=== PATIENT | male | born 1980 | race Caucasian/White ===

== ENCOUNTER 2020-02-27 19:47 | Inpatient (IN) | payer SELFPAY ==
[2020-02-27] MEDS ORDERED: PIPERACILLIN/TAZOBACTAM 3.375 GM VIAL IV ONE (20:04)
[2020-02-27] MEDS ORDERED: VANCOMYCIN HCL INJ 1000 MG VIAL IV ONE (20:04)
[2020-02-27] MEDS ORDERED: HYDROMORPHONE HCL INJ/PF 2 MG/ML AMPULE IV ONE (20:15)
[2020-02-27] MEDS ORDERED: LORAZEPAM INJ 2 MG/1 ML VIAL IV ONE (20:15)
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
[2020-02-27] MEDS: NORMAL SALINE 1000 ML 1,000 ML IV PRN ×2 (20:33→21:34)
[2020-02-27 20:52] LABS: HEMATOCRIT 35.9 % (37.9-51.0); HEMOGLOBIN 11.9 g/dL (13.5-17.0); MEAN CORPUSCULAR HEMOGLOBIN 26.3 pg (27.0-33.4); MEAN CORPUSCULAR HGB CONC 33.2 g/dL (32.0-36.0); MEAN CORPUSCULAR VOLUME 79 fl (80-97); PLATELET COUNT 208 10^3/uL (150-450); RED BLOOD COUNT 4.55 10^6/uL (4.35-5.55); RED CELL DISTRIBUTION WIDTH 15.3 % (11.5-14.0); WHITE BLOOD COUNT 25.1 10^3/uL (4.0-10.5)
--- NOTE | 2020-02-27 21:00 | RADIOLOGY REPORT (SQ) ---
AP Portable chest: 02/27/2020 7:57 PM CAMPAIGN ADVISOR History: 39-year old patient with sepsis. Comparison: None available Findings: The cardiomediastinal silhouette is normal in size. No pneumothorax is seen. There are airspace opacities seen at the left lung base. There is blunting of the left costophrenic angle, suggestive of a trace left effusion. Impression: There is an airspace opacity seen at the left lung base associated with trace left effusion. These may reflect developing infection or atelectasis.
[2020-02-27 21:07] LABS: ALBUMIN 3.5 g/dL (3.5-5.0); ALKALINE PHOSPHATASE 101 U/L (38-126); ANION GAP 10 (5-19); ASPARTATE AMINO TRANSFERASE 35 U/L (17-59); BILIRUBIN,TOTAL 1.3 mg/dL (0.2-1.3); BLOOD UREA NITROGEN 12 mg/dL (7-20); CALCIUM 9.5 mg/dL (8.4-10.2); CARBON DIOXIDE 23 mmol/L (22-30); CHLORIDE 96 mmol/L (98-107); GLUCOSE 158 mg/dL (75-110); POTASSIUM 3.7 mmol/L (3.6-5.0); TOTAL PROTEIN 6.7 g/dL (6.3-8.2)
[2020-02-27 21:24] LABS: ABSOLUTE LYMPHOCYTES# (MANUAL) 1.3 10^3/uL (0.5-4.7); ABSOLUTE MONOCYTES # (MANUAL) 1.3 10^3/uL (0.1-1.4); ANISOCYTOSIS SLIGHT; BAND NEUTROPHILS % (MANUAL) 3 % (3-5); BASOPHILS % (MANUAL) 0 % (0-2); EOSINOPHILS % (MANUAL) 0 % (0-6); LYMPHOCYTES % (MANUAL) 5 % (13-45); MONOCYTES % (MANUAL) 5 % (3-13); PLATELET COMMENT ADEQUATE; SEGMENTED NEUTROPHILS % (MAN) 87 % (42-78); TOTAL CELLS COUNTED 100; TOXIC VACUOLATION PRESENT
[2020-02-27] MEDS ORDERED: FENTANYL CITRATE INJ/PF 100 MCG/2 ML AMPUL IV ONE (22:06)
--- NOTE | 2020-02-27 22:29 | EKG REPORT ---
SEVERITY:- OTHERWISE NORMAL ECG - SINUS TACHYCARDIA : Confirmed by: Stella Raza MD 27-Feb-2020 22:28:39
[2020-02-27 22:47] LABS: APPEARANCE,URINE CLEAR; BILIRUBIN,URINE NEGATIVE (NEGATIVE); COLOR,URINE YELLOW; GLUCOSE, URINE 50 mg/dL (NEGATIVE); KETONES,URINE NEGATIVE (NEGATIVE); LEUKOCYTE ESTERASE,URINE NEGATIVE (NEGATIVE); NITRITE,URINE NEGATIVE (NEGATIVE); PROTEIN,URINE 100 mg/dL (NEGATIVE); URINE SPECIFIC GRAVITY 1.025; UROBILINOGEN,URINE NEGATIVE mg/dL (<2.0)
[2020-02-27 23:02] LABS: URINE AMPHETAMINES SCREEN NEGATIVE; URINE BARBITURATES SCREEN NEGATIVE; URINE BENZODIAZEPINES SCREEN NEGATIVE; URINE COCAINE SCREEN NEGATIVE; URINE MARIJUANA (THC) SCREEN NEGATIVE; URINE METHADONE SCREEN NEGATIVE; URINE PHENCYCLIDINE SCREEN NEGATIVE
[2020-02-27] MEDS ORDERED: ACETAMINOPHEN 325 MG TABLET PO PRN (23:09)
[2020-02-27] MEDS ORDERED: ONDANSETRON HCL INJ/PF 4 MG/2 ML SDV IV PRN (23:09)
--- NOTE | 2020-02-27 23:26 | RADIOLOGY REPORT (SQ) ---
EXAM DESCRIPTION: HUMERUS LEFT RadLex: XR HUMERUS Views: 2 CLINICAL HISTORY: 39 years Male; cellulitis; COMPARISON: None. FINDINGS: Negative for acute fracture, dislocation, or radiopaque foreign body. No lytic bone changes or periosteal reaction. No soft tissue air. IMPRESSION: 1. No acute bone findings
[2020-02-27] MEDS ORDERED: PIPERACILLIN/TAZOBACTAM 3.375 GM VIAL IV PRN (23:27)
--- NOTE | 2020-02-27 23:27 | RADIOLOGY REPORT (SQ) ---
Left forearm x-ray two views on 02/27/2020 at 10:47 PM CLINICAL INDICATION: Cellulitis COMPARISON: None FINDINGS: Soft tissue swelling is noted in the proximal forearm and around the elbow. There is no radiopaque foreign body. There are no fractures. No joint effusion is noted in the elbow. Visualized joints are well aligned. No definite plain radiographic evidence of osteomyelitis is noted. No bony abnormality is noted. IMPRESSION: No acute abnormality.
[2020-02-27] MEDS ORDERED: VANCOMYCIN HCL 0 MG in DEXTROSE 5%-WATER 250 ML IV NR (23:30)
[2020-02-27] MEDS ORDERED: VANCOMYCIN HCL INJ 500 MG VIAL IV PRN (23:32)
--- NOTE | 2020-02-27 23:32 | PDOC H&P ---
History of Present Illness Admission Date/PCP: 02/27/20 22:39 Patient complains of: Left upper extremity swelling and pain History of Present Illness: MARTINEZ YOUNGER is a 39 year old male with a history of IV drug use now presents to the ER with 3 days duration of left arm swelling with associated severe excruciating 10/10 intensity, constant dull aching pain. Patient states that the swelling, pain and redness started around his left elbow and it progressiv jory got no worse to attain its current size. He also reports that it started at the site where he injected himself IV drug few days back. He also endorses associated fever, chills. He states that he has been using heroin and crystal meth. Patient denies shortness of breath, lightheadedness, nausea, vomiting, abdominal pain, diarrhea, dysuria, frequency of urination, leg swelling. He also denies any cough, hemoptysis, runny nose, sore throat or any recent sick contact history. Social History Information Source: Patient Smoking Status: Current Some Day Smoker Drugs: Heroin, Other - Crystal amphetamine - Advance Directive Resuscitation Status: Full Code Family History Family History: Reviewed & Not Pertinent Parental Family History Reviewed: Yes Children Family History Reviewed: Yes Sibling(s) Family History Reviewed.: Yes Medication/Allergy Home Medications: Ibuprofen [Motrin 800 mg Tablet] 800 mg PO TID #30 tablet 07/24/14 Sulfamethoxazole/Trimethoprim [Bactrim Ds Tablet] 1 each PO BID #20 tablet 07/24/14 Ibuprofen [Motrin 800 mg Tablet] 800 mg PO Q8H PRN 5 Days tab 08/02/14 Allergies/Adverse Reactions: No Known Allergies Allergy (Verified 04/22/14 02:34) Review of Systems Constitutional: PRESENT: as per HPI Eyes: ABSENT: visual disturbances Ears: ABSENT: hearing changes Nose, Mouth, and Throat: ABSENT: headache(s), mouth pain, sore throat Cardiovascular: ABSENT: chest pain, dyspnea on exertion, edema, orthropnea, palpitations Respiratory: ABSENT: cough, hemoptysis Gastrointestinal: ABSENT: abdominal pain, constipation, diarrhea, hematemesis, hematochezia, nausea, vomiting Genitourinary: ABSENT: dysuria, hematuria Musculoskeletal: PRESENT: as per HPI Integumentary: ABSENT: rash, wounds Neurological: ABSENT: abnormal gait, abnormal speech, confusion, dizziness, focal weakness, syncope Psychiatric: ABSENT: anxiety, depression, homidical ideation, suicidal ideation Endocrine: ABSENT: cold intolerance, heat intolerance, polydipsia, polyuria Hematologic/Lymphatic: ABSENT: easy bleeding, easy bruising Physical Exam Vital Signs: Temp Pulse Resp BP Pulse Ox 100.0 F 32 H 146/85 H 98 02/27/20 22:01 02/27/20 22:01 02/27/20 22:01 02/27/20 22:01 Intake & Output 02/26/20 02/27/20 02/28/20 06:59 06:59 06:59 Intake Total 1999 Balance 1999 Weight 80 kg Additional comments: GENERAL APPEARANCE: Alert and oriented x3, patient appears to be in discomfort due to pain HEENT: Normocephalic and atraumatic. No scleral icterus. Moist oral mucosa NECK: Supple. No lymphadenopathy or tenderness. No carotid bruit. No JVD CHEST: Symmetric. Nontender to palpation. LUNGS: Clear with good air entry bilaterally. No wheezing or crackles HEART: Regular rate and rhythm with normal S1 and S2. No murmurs, gallops, or rubs. ABDOMEN: soft, active bowel sounds, no direct or rebound tenderness. No organomegaly detected. No CVA tenderness EXTREMITIES: There is a marked swelling of the left upper extremity extending to his shoulder area with associated erythema, tenderness and differential warmth. There are track vasquez of IV drug injection site bilaterally on his upper extremities. MUSCULOSKELETAL: No deformity, atrophy or swelling noted PSYCHIATRIC: Recent and remote memory is intact. Appropriate mood and affect. SKIN: Warm, dry, and well perfused. NEUROLOGIC: No focal sensory or motor deficits are noted. Results Laboratory Results: 02/27/20 20:31 02/27/20 20:31 02/27/20 02/27/20 02/27/20 20:31 20:31 22:14 WBC 25.1 H RBC 4.55 Hgb 11.9 L Hct 35.9 L MCV 79 L MCH 26.3 L MCHC 33.2 RDW 15.3 H Plt Count 208 Seg Neutrophils % Not Reportable Sodium 129.2 L Potassium 3.7 Chloride 96 L Carbon Dioxide 23 Anion Gap 10 BUN 12 Creatinine 0.56 Est GFR ( Amer) > 60 Glucose 158 H Calcium 9.5 Total Bilirubin 1.3 AST 35 Alkaline Phosphatase 101 Total Protein 6.7 Albumin 3.5 Urine Color YELLOW Urine Appearance CLEAR Urine pH 6.0 Ur Specific [place] 1.025 Urine Protein 100 H Urine Glucose (UA) 50 H Urine Ketones NEGATIVE Urine Blood SMALL H Urine Nitrite NEGATIVE Ur Leukocyte Esterase NEGATIVE Urine WBC (Auto) 4 Urine RBC (Auto) 6 02/27/20 20:31 Troponin I < 0.012 Impressions: Forearm X-Ray 02/27/20 22:28 IMPRESSION: No acute abnormality. Humerus X-Ray 02/27/20 22:29 IMPRESSION: 1. No acute bone findings Assessment and Plan - Diagnosis (1) Sepsis Is this a current diagnosis for this admission?: Yes Plan: Patient presents with signs of left upper extremity cellulitis Has signs of systemic toxicity including tachycardia, fever and leukocytosis Meets sepsis criteria. SIRS: 3/4 Patient at risk for infective endocarditis X-ray shows no gas in subcutaneous tissue 2 sets of blood cultures have been drawn Started on vancomycin and Zosyn Continue IV hydration Monitor CBC and follow-up with blood culture (2) Cellulitis of left upper extremity Is this a current diagnosis for this admission?: Yes Plan: Patient presents with left upper extremity swelling, pain, erythema Has tenderness and differential warmth on physical exam Has systemic signs of toxicity including fever and leukocytosis Meets criteria for sepsis and management as stated above Currently on vancomycin and Zosyn Follow-up with blood culture (3) Alcohol dependence with withdrawal, unspecified Is this a current diagnosis for this admission?: Yes Plan: Placed the patient on CIWA protocol Ativan as needed per protocol (4) Leukocytosis Is this a current diagnosis for this admission?: Yes Plan: Due to left upper extremity cellulitis Continue management as stated above (5) Hyponatremia Is this a current diagnosis for this admission?: Yes Plan: Sodium level 129 Obtain serum, urine osmolality and urine sodium Continue hydration Closely monitor BMP to avoid overcorrection (6) IV drug abuse Is this a current diagnosis for this admission?: Yes Plan: Patient reports that he uses heroin and crystal meth He is at increased risk of infective endocarditis Continued counseling on the risks of IV drug abuse - Time Time Spent with patient: 35 or more minutes Total Critical Time (Minutes): 45 Smoking Cessation Education: 3 to 10 minutes Medications reviewed and adjusted accordingly: Yes Anticipated Discharge Disposition: Home, Self Care Anticipated Discharge Timeframe: within 72 hours - Inpatient Certification Based on my medical assessment, after consideration of the patient's c omorbidities, presenting symptoms, or acuity I expect that the services needed warrant INPATIENT care.: Yes I certify that my determination is in accordance with my understanding of Medicare's requirements for reasonable and necessary INPATIENT services [42 CFR 412.3e].: Yes Medical Necessity: Need Close Monitoring Due to Risk of Patient Decompensation, Need For IV Fluids, Need For Continuous Telemetry Monitoring, Need for IV Antibiotics, Risk of Complication if Not Cared For in Hospital Post Hospital Care: D/C or Transfer Summary
[2020-02-27] MEDS ORDERED: VANCOMYCIN HCL 500 MG in DEXTROSE 5%-WATER 100 ML IV ONE (23:45)
[2020-02-27] MEDS: HYDROMORPHONE HCL INJ/PF 2 MG/ML AMPULE IV PRN (23:50)
[2020-02-27] MEDS: FAMOTIDINE 20 MG TABLET PO SCH (23:51)
[2020-02-27] MEDS: NICOTINE 21 MG/24 HR PATCH.TD24 TD SCH (23:51)
[2020-02-27] MEDS: RINGERS SOLUTION,LACTATED 1,000 ML IV PRN (23:51)
[2020-02-28] MEDS ORDERED: PIPERACILLIN/TAZOBACTAM 3.375 GM VIAL IV ONE (03:12)
[2020-02-28] MEDS: PIPERACILLIN SODIUM/TAZOBACTAM 3.375 GM in NORMAL SALINE 100 ML IV SCH ×2 (03:15→09:15)
[2020-02-28] MEDS: LORAZEPAM INJ 2 MG/1 ML VIAL IV PRN ×3 (03:15→11:44)
[2020-02-28] MEDS: HYDROMORPHONE HCL INJ/PF 2 MG/ML AMPULE IV PRN ×3 (03:53→11:44)
[2020-02-28] MEDS: RINGERS SOLUTION,LACTATED 1,000 ML IV PRN ×2 (05:36→13:54)
[2020-02-28 07:32] LABS: HEMATOCRIT 33.3 % (37.9-51.0); HEMOGLOBIN 11.2 g/dL (13.5-17.0); MEAN CORPUSCULAR HEMOGLOBIN 26.7 pg (27.0-33.4); MEAN CORPUSCULAR HGB CONC 33.8 g/dL (32.0-36.0); MEAN CORPUSCULAR VOLUME 79 fl (80-97); PLATELET COUNT 225 10^3/uL (150-450); RED BLOOD COUNT 4.21 10^6/uL (4.35-5.55); RED CELL DISTRIBUTION WIDTH 15.1 % (11.5-14.0); WHITE BLOOD COUNT 27.6 10^3/uL (4.0-10.5)
[2020-02-28 07:45] LABS: ANION GAP 10 (5-19); BLOOD UREA NITROGEN 6 mg/dL (7-20); CALCIUM 9.1 mg/dL (8.4-10.2); CARBON DIOXIDE 24 mmol/L (22-30); CHLORIDE 99 mmol/L (98-107); GLUCOSE 132 mg/dL (75-110)
[2020-02-28 08:16] LABS: ABSOLUTE LYMPHOCYTES# (MANUAL) 0.6 10^3/uL (0.5-4.7); ABSOLUTE MONOCYTES # (MANUAL) 1.7 10^3/uL (0.1-1.4); BAND NEUTROPHILS % (MANUAL) 1 % (3-5); BASOPHILS % (MANUAL) 0 % (0-2); EOSINOPHILS % (MANUAL) 0 % (0-6); LYMPHOCYTES % (MANUAL) 2 % (13-45); MONOCYTES % (MANUAL) 6 % (3-13); SEGMENTED NEUTROPHILS % (MAN) 91 % (42-78); TOTAL CELLS COUNTED 100
[2020-02-28 08:17] LABS: PLATELET COMMENT ADEQUATE
[2020-02-28 08:18] LABS: ANISOCYTOSIS SLIGHT
[2020-02-28 08:20] LABS: OVALOCYTES SLIGHT
[2020-02-28] MEDS ORDERED: GLYCOPYRROLATE 1 MG/5 ML VIAL ONE (08:57)
[2020-02-28] MEDS ORDERED: NEOSTIGMINE METHYLSULFATE 10 MG/10 ML VIAL ONE (08:57)
[2020-02-28] MEDS ORDERED: VANCOMYCIN HCL 1,500 MG in DEXTROSE 5%-WATER 250 ML IV ONE (09:00)
[2020-02-28] MEDS ORDERED: CLINDAMYCIN 900 MG/D5W RTU 900 MG/50 ML RTUPB IV ONE (10:00)
[2020-02-28] MEDS: NICOTINE 21 MG/24 HR PATCH.TD24 TD SCH (10:39)
[2020-02-28] MEDS: ENOXAPARIN SODIUM INJ 40 MG/0.4 ML DISP.SYRIN SUBCUT SCH (10:40)
[2020-02-28] MEDS: FAMOTIDINE 20 MG TABLET PO SCH (10:40)
[2020-02-28] MEDS ORDERED: CEFTRIAXONE 2 GM/D5W RTU 2 GM/50 ML RTUPB IV SCH (11:00)
--- NOTE | 2020-02-28 11:52 | RADIOLOGY REPORT (SQ) ---
EXAM DESCRIPTION: CT LT UPPER EXTREMITY WITH IMAGES COMPLETED DATE/TIME: 02/28/2020 11:32 am REASON FOR STUDY: possible necrotizing fascitis of LUE COMPARISON: Conventional radiographs obtained 02/27/2020 TECHNIQUE: Axial imaging performed through the left upper extremity with reformatted coronal and sag ittal imaging windowed for bone and soft tissues. Images saved to PACS. 3D IMAGING: Were 3D images as MIP, SSD, or volume rendering performed at the work station? No. All CT scanners at this facility use dose modulation, iterative reconstruction, and/or weight based d osing when appropriate to reduce radiation dose to as low as reasonably achievable (ALARA). [facility]: Dose Right [facility]: CareDose [facility]: Dose Right [facility]: Teradose 4D [facility]: xTV LIMITATIONS: None. RADIATION DOSE: CT Rad equipment meets quality standard of care and radiation dose reduction techniq ues were employed. CTDIvol: 2.6 mGy. DLP: 188 mGy-cm. mGy. FINDINGS: SOFT TISSUES: No focal fluid collections are air. There is soft tissue edema. BONES: No acute fracture. No dislocation. MINERALIZATION: Normal. OTHER: Left pleural effusion is noted. IMPRESSION: Soft tissue edema. No new subcutaneous gas to suggest necrotizing fasciitis. Small left effusion. TECHNICAL DOCUMENTATION: JOB ID: [id number] Quality ID # [id number]: Final reports with documentation of one or more dose reduction techniques (e.g., Au tomated exposure control, adjustment of the mA and/or kV according to patient size, use of iterative reconstruction technique) 2010 [employer]- All Rights Reserved Reading location - IP/workstation name: [email or web address]
--- NOTE | 2020-02-28 13:14 | RADIOLOGY REPORT (SQ) ---
EXAM DESCRIPTION: VENOUS UNILATERAL UPPER IMAGES COMPLETED DATE/TIME: 02/28/2020 12:59 pm REASON FOR STUDY: left upper extremity swelling, r/o Left arm DVT COMPARISON: None. TECHNIQUE: Dynamic and static quinteros scale and color images acquired of the left arm venous system. Se lected spectral images acquired with additional compression and augmentation maneuvers. The contralat eral subclavian vein and internal jugular vein were also imaged. Images stored on PACS. LIMITATIONS: None. FINDINGS: INTERNAL JUGULAR VEIN: Normal phasicity, compression, augmentation. No visualized echogeni c material on quinteros scale. No defects on color images. Comparison opposite side normal. SUBCLAVIAN VEIN: Normal compression, augmentation. No visualized echogenic material on quinteros scale. No defects on color images. AXILLARY VEIN: Normal compression, augmentation. No visualized echogenic material on quinteros scale. No d efects on color images. BRACHIAL VEIN: Normal compression, augmentation. No visualized echogenic material on quitneros scale. No d efects on color images. BASILIC VEIN: Normal compression, augmentation. No visualized echogenic material on quinteros scale. No de fects on color images. CEPHALIC VEIN: There is a acute occlusive thrombus noted in the cephalic vein from the mid forearm to the upper arm. OTHER: No other significant finding. IMPRESSION: Occlusive SVT involving the cephalic vein as described. TECHNICAL DOCUMENTATION: JOB ID: [id number] 2010 [employer]- All Rights Reserved Reading location - IP/workstation name: [email or web address]
--- NOTE | 2020-02-28 14:27 | PDOC PROGRESS REPORT ---
Subjective Date:: 02/28/20 Subjective:: Patient is somnolent during encounter this morning. He did not really communica te with me. He did respond when I reflected painful stimulus. After that he began talking and stating it hurt. However drifts back into sleep. Reason For Visit: SEPSIS,LEFT UPPER EXTREMITY CELLULITIS,IV DRUG ABU Physical Exam Vital Signs: Temp Pulse Resp BP Pulse Ox 99.6 F 112 H 26 H 127/74 H 99 02/28/20 11:00 02/28/20 06:59 02/28/20 13:01 02/28/20 13:01 02/28/20 13:01 Intake & Output 02/27/20 02/28/20 02/29/20 06:59 06:59 06:59 Intake Total 3000 1100 Balance 3000 1100 Weight 80 kg General appearance: ABSENT: cooperative Neck exam: ABSENT: JVD Respiratory exam: PRESENT: clear to auscultation martha, symmetrical, unlabored. ABSENT: tachypnea, wheezes Cardiovascular exam: PRESENT: +S1, +S2, tachycardia. ABSENT: diastolic murmur, irregular rhythm, systolic murmur GI/Abdominal exam: PRESENT: soft. ABSENT: rebound, rigid, tenderness Extremities exam: PRESENT: other - Significant redness and swelling of his left upper arm. He also has significant tenderness on even light palpation of his left upper extremity. Capillary refill in the left arm is okay. Neurological exam: PRESENT: altered, awake - To painful stimulus. Able to talk once I get him awake but then drifts back into sleep. Appears quite somnolent., oriented to person. ABSENT: alert Psychiatric exam: ABSENT: agitated, anxious Results Laboratory Results: 02/28/20 06:41 02/28/20 06:41 02/27/20 02/27/20 02/27/20 20:31 20:31 22:14 WBC 25.1 H RBC 4.55 Hgb 11.9 L Hct 35.9 L MCV 79 L MCH 26.3 L MCHC 33.2 RDW 15.3 H Plt Count 208 Seg Neutrophils % Not Reportable Sodium 129.2 L Potassium 3.7 Chloride 96 L Carbon Dioxide 23 Anion Gap 10 BUN 12 Creatinine 0.56 Est GFR ( Amer) > 60 Glucose 158 H Lactic Acid Calcium 9.5 Total Bilirubin 1.3 AST 35 Alkaline Phosphatase 101 Total Protein 6.7 Albumin 3.5 Urine Color YELLOW Urine Appearance CLEAR Urine pH 6.0 Ur Specific [place] 1.025 Urine Protein 100 H Urine Glucose (UA) 50 H Urine Ketones NEGATIVE Urine Blood SMALL H Urine Nitrite NEGATIVE Ur Leukocyte Esterase NEGATIVE Urine WBC (Auto) 4 Urine RBC (Auto) 6 02/28/20 02/28/20 02/28/20 06:41 06:41 06:41 WBC 27.6 H RBC 4.21 L Hgb 11.2 L Hct 33.3 L MCV 79 L MCH 26.7 L MCHC 33.8 RDW 15.1 H Plt Count 225 Seg Neutrophils % Not Reportable Sodium 133.4 L Potassium 4.0 Chloride 99 Carbon Dioxide 24 Anion Gap 10 BUN 6 L Creatinine 0.51 L Est GFR ( Amer) > 60 Glucose 132 H Lactic Acid 1.7 Calcium 9.1 Total Bilirubin AST Alkaline Phosphatase Total Protein Albumin Urine Color Urine Appearance Urine pH Ur Specific [place] Urine Protein Urine Glucose (UA) Urine Ketones Urine Blood Urine Nitrite Ur Leukocyte Esterase Urine WBC (Auto) Urine RBC (Auto) 02/27/20 20:31 Blood Blood Culture (PCR) - Final Strep Pyogenes (Grp A) 02/27/20 20:31 Troponin I < 0.012 Impressions: Forearm X-Ray 02/27/20 22:28 IMPRESSION: No acute abnormality. Humerus X-Ray 02/27/20 22:29 IMPRESSION: 1. No acute bone findings Upper Extremity CT 02/28/20 00:00 IMPRESSION: Soft tissue edema. No new subcutaneous gas to suggest necrotizing fasciitis. Small left effusion. Venous Doppler Study 02/28/20 00:00 IMPRESSION: Occlusive SVT involving the cephalic vein as described. Assessment and Plan - Diagnosis (1) Disease due to invasive group A beta-hemolytic Streptococcus Is this a current diagnosis for this admission?: Yes Plan: Group A strep bacteremia 2/2 inoculation from IV drug abuse and cellulitis Antibiotics changed to clindamycin + penicillin G Repeat blood culture in the morning (2) Cellulitis of left upper extremity Is this a current diagnosis for this admission?: Yes Plan: Patient has very significant profound cellulitis involving his left upper arm and quite tender on light palpation. I did get a CT of his left arm with concerns for necrotizing fasciitis but the CT does not show any evidence of nec fasc just shows extensive soft tissue swelling Continue antibiotics as prescribed. Continue IV Dilaudid for pain control. I will have surgery evaluate to see if intervention is warranted (3) Sepsis Qualifiers: Sepsis type: Streptococcus group A Sepsis acute organ dysfunction status: with acute organ dysfunction Severe sepsis acute organ dysfunction type: encephalopathy Severe sepsis shock status: without septic shock Qualified Code(s): A40.0 - Sepsis due to streptococcus, group A; R65.20 - Severe sepsis without septic shock; G93.41 - Metabolic encephalopathy Is this a current diagnosis for this admission?: Yes Plan: Secondary to invasive group a strep bacteremia with profound cellulitis of his left upper arm. Continue IV fluid resuscitation. Significantly tachycardic secondary to sepsis. Monitor strict I's and O's. (4) Superficial venous thrombosis of left arm Is this a current diagnosis for this admission?: Yes Plan: Venous Doppler shows acute occlusive SVT of his left cephalic vein. C/w Lovenox 40 mg daily. Arm elevation, warm compresses and IV Toradol. I will have surgery evaluate with concerns for septic thrombophlebitis monitor for for signs of compartment syndrome. (5) Alcohol dependence with withdrawal, unspecified Qualifiers: Complication of substance-induced condition: uncomplicated Qualified Code(s): F10.230 - Alcohol dependence with withdrawal, uncomplicated Is this a current diagnosis for this admission?: Yes Plan: History of alcohol abuse. Continue CIWA protocol. I will discontinue Ativan as I can get an actual assessment of patient's mental status especially given his sepsis. (6) Hyponatremia Is this a current diagnosis for this admission?: Yes Plan: Improved with IV hydration. Sodium is now 133. (7) IV drug abuse Is this a current diagnosis for this admission?: Yes Plan: Patient reports that he uses heroin and crystal meth He is at increased risk of infective endocarditis I will follow up the echo result. - Time Time Spent with patient: 15-24 minutes Anticipated Discharge Disposition: Home, Self Care Anticipated Discharge Timeframe: within 72 hours
[2020-02-28] MEDS ORDERED: DEXTROSE 50%-WATER 25 GM/50 ML DISP.SYRIN IV PRN ×2 (14:34)
[2020-02-28] MEDS ORDERED: GLUCAGON,HUMAN RECOMB 1 MG INJ SUBCUT PRN (14:34)
[2020-02-28] MEDS ORDERED: DEXTROSE 40% GEL 15 GM TUBE PO PRN ×2 (14:34)
[2020-02-28 15:17] LABS: INTERNATIONAL RATION (INR) 1.21; PROTHROMBIN TIME 15.5 SEC (11.4-15.4)
[2020-02-28 15:18] LABS: PARTIAL THROMBOPLASTIN TIME 38.1 SEC (23.5-35.8)
[2020-02-28] MEDS: KETOROLAC TROMETHAMINE INJ/PF 30 MG/1 ML SDV IV SCH ×2 (17:04→22:13)
[2020-02-28] MEDS ORDERED: LIDOCAINE 2% INJ-PF (20 MG/ML) 10 ML AMPUL ONE (17:18)
[2020-02-28] MEDS ORDERED: FENTANYL CITRATE INJ/PF 100 MCG/2 ML AMPUL ONE (17:19)
[2020-02-28] MEDS ORDERED: PROPOFOL INJ 200 MG/20 ML VIAL IV ONE (17:19)
[2020-02-28] MEDS ORDERED: ONDANSETRON HCL INJ/PF 4 MG/2 ML SDV ONE (17:19)
[2020-02-28] MEDS ORDERED: HYDROMORPHONE HCL INJ/PF 2 MG/ML AMPULE ONE (17:19)
[2020-02-28] MEDS ORDERED: VANCOMYCIN HCL 1,250 MG in DEXTROSE 5%-WATER 250 ML IV SCH (18:00)
[2020-02-28] MEDS ORDERED: PENICILLIN G-K 5 MILLION UNIT VIAL IV SCH (18:00)
[2020-02-28] MEDS: DEXTROSE 5% IV SCH ×2 (18:21→22:19)
[2020-02-28] MEDS: CLINDAMYCIN 900 MG/D5W RTU 900 MG/50 ML RTUPB IV SCH (18:21)
[2020-02-28] MEDS: WATER IV SCH ×2 (18:21→22:19)
[2020-02-28] MEDS: PENICILLIN POTASSIUM IV SCH ×2 (18:21→22:19)
[2020-02-28] MEDS ORDERED: INFLUENZA QUAD (6MOS+) 2020-21 VAC 0.5 ML SYR IM ONE (18:30)
--- NOTE | 2020-02-28 19:46 | PDOC CONSULTATION ---
Consultation Consult Date: 02/28/20 Attending physician:: ADALBERTO QUINN Provider Consulted: NESHA LOPES Consult reason:: left arm abscess History of Present Illness Admission Date/PCP: 02/27/20 22:39 History of Present Illness: MARTINEZ YOUNGER is a 39 year old male Social History Lives with: Family Smoking Status: Current Some Day Smoker Drugs: Heroin, Other - Crystal amphetamine - Advance Directive Resuscitation Status: Full Code Family History Family History: Reviewed & Not Pertinent Parental Family History Reviewed: No Children Family History Reviewed: NA Sibling(s) Family History Reviewed.: NA Medication/Allergy Home Medications: No Home Medications 02/28/20 Allergies/Adverse Reactions: No Known Allergies Allergy (Verified 04/22/14 02:34) Review of Systems Constitutional: PRESENT: fatigue Eyes: ABSENT: as per HPI, visual disturbances, other Ears: ABSENT: as per HPI, hearing changes, other Nose, Mouth, and Throat: ABSENT: as per HPI, headache(s), mouth pain, sore throat, vertigo, other Breasts: ABSENT: as per HPI, other Cardiovascular: ABSENT: as per HPI, chest pain, dyspnea on exertion, edema, orthropnea, palpitations, other Respiratory: ABSENT: as per HPI, cough, dyspnea, hemoptysis, sputum, other Gastrointestinal: ABSENT: as per HPI, abdominal pain, bloating, coffee ground emesis, constipation, diarrhea, dysphagia, heartburn, hematemesis, hematochezia, melena, nausea, vomiting, other Genitourinary: ABSENT: as per HPI, difficulty urinating, dysuria, hematuria, nocturia, other Musculoskeletal: ABSENT: as per HPI, back pain, deformity, joint swelling, muscle weakness, other Integumentary: ABSENT: as per HPI, diaphoresis, erythema, lesions, pruritus, rash, wounds, other Neurological: ABSENT: as per HPI, abnormal gait, abnormal movements, abnormal speech, confusion, convulsions, dizziness, focal weakness, frequent falls, lack of coordination, memory loss, numbness, paresthesias, restless legs, syncope, tingling, tremor(s), vertigo, weakness, other Psychiatric: ABSENT: as per HPI, anxiety, depression, hallucinations, homidical ideation, suicidal ideation, other Endocrine: ABSENT: as per HPI, cold intolerance, flushing, heat intolerance, me nstrual abnormalities, polydipsia, polyphagia, polyuria, other Hematologic/Lymphatic: ABSENT: as per HPI, easy bleeding, easy bruising, lymphadenopathy, other Physical Exam Vital Signs: Temp Pulse Resp BP Pulse Ox 99.6 F 112 H 33 H 135/71 H 100 02/28/20 11:00 02/28/20 06:59 02/28/20 15:01 02/28/20 15:01 02/28/20 14:01 Intake & Output 02/27/20 02/28/20 02/29/20 06:59 06:59 06:59 Intake Total 3000 1100 Balance 3000 1100 Weight 80 kg Results Laboratory Results: 02/28/20 06:41 02/28/20 06:41 02/27/20 02/27/20 02/27/20 20:31 20:31 22:14 WBC 25.1 H RBC 4.55 Hgb 11.9 L Hct 35.9 L MCV 79 L MCH 26.3 L MCHC 33.2 RDW 15.3 H Plt Count 208 Seg Neutrophils % Not Reportable Sodium 129.2 L Potassium 3.7 Chloride 96 L Carbon Dioxide 23 Anion Gap 10 BUN 12 Creatinine 0.56 Est GFR ( Amer) > 60 Glucose 158 H Lactic Acid Calcium 9.5 Total Bilirubin 1.3 AST 35 Alkaline Phosphatase 101 Total Protein 6.7 Albumin 3.5 Urine Color YELLOW Urine Appearance CLEAR Urine pH 6.0 Ur Specific [place] 1.025 Urine Protein 100 H Urine Glucose (UA) 50 H Urine Ketones NEGATIVE Urine Blood SMALL H Urine Nitrite NEGATIVE Ur Leukocyte Esterase NEGATIVE Urine WBC (Auto) 4 Urine RBC (Auto) 6 02/28/20 02/28/20 02/28/20 06:41 06:41 06:41 WBC 27.6 H RBC 4.21 L Hgb 11.2 L Hct 33.3 L MCV 79 L MCH 26.7 L MCHC 33.8 RDW 15.1 H Plt Count 225 Seg Neutrophils % Not Reportable Sodium 133.4 L Potassium 4.0 Chloride 99 Carbon Dioxide 24 Anion Gap 10 BUN 6 L Creatinine 0.51 L Est GFR ( Amer) > 60 Glucose 132 H Lactic Acid 1.7 Calcium 9.1 Total Bilirubin AST Alkaline Phosphatase Total Protein Albumin Urine Color Urine Appearance Urine pH Ur Specific [place] Urine Protein Urine Glucose (UA) Urine Ketones Urine Blood Urine Nitrite Ur Leukocyte Esterase Urine WBC (Auto) Urine RBC (Auto) 02/27/20 20:31 Blood Blood Culture (PCR) - Final Strep Pyogenes (Grp A) 02/27/20 20:31 Troponin I < 0.012 Impressions: Forearm X-Ray 02/27/20 22:28 IMPRESSION: No acute abnormality. Humerus X-Ray 02/27/20 22:29 IMPRESSION: 1. No acute bone findings Upper Extremity CT 02/28/20 00:00 IMPRESSION: Soft tissue edema. No new subcutaneous gas to suggest necrotizing fasciitis. Small left effusion. Venous Doppler Study 02/28/20 00:00 IMPRESSION: Occlusive SVT involving the cephalic vein as described. Assessment & Plan - Plan Summary Plan Summary: ivda left arm multiple abscesses + blood cults for staph plan incision and drainage of left arm and poss cephalic vein excision.
--- NOTE | 2020-02-28 20:05 | XCELERA REPORT ---
[address] [address] Transthoracic Echocardiogram Report Name: MARTINEZ YOUNGER Age: 39 yrs Gender: Male : 1980 Patient Status: Inpatient Patient Location: [place] [address]^A Study Date: 02/28/2020 09:56 AM Height: 73 in Weight: 176 lb BSA: 2.0 m2 Procedure: A two-dimensional transthoracic echocardiogram with color flow and Doppler was performed. Study Quality: Fair. Reason For Study: possible infective endocarditis History: infective endocarditis. Ordering Physician: ANETA KIDD Performed By: Manan Villanueva Interpretation Summary No defenite evidence of endocarditis.Recommend MAINE if clinical suspicion is high. The left ventricle is normal in size. There is normal left ventricular wall thickness. LV EF is 55% to 60% Left ventricular systolic function is normal. Doppler measurements suggest impaired left ventricular relaxation, which is associated with grade I/IV or mild diastolic dysfunction The left ventricular wall motion is normal. There is no thrombus. No ASD,VSD,or PFOn seen. The right ventricle is normal in size and function. The left atrial size is normal. There is no evidence of mitral valve prolapse. There is no vegetation seen on the mitral valve. There is no mitral valve stenosis. There is a trace amount of mitral regurgitation There is no aortic valvular vegetation. There is no aortic valve stenosis No aortic regurgitation is present. There is no tricuspid stenosis. There is a trace amount of tricuspid regurgitation Tricuspid regurgitation jet envelope not well defined to measure RV systolic pressure accurately. There is no tricuspid valve vegetation. There is no pulmonic valvular stenosis. There is a trace amount of pulmonic regurgitation The aortic root is normal size. The inferior vena cava appeared normal and decreased > 50% with respiration (RAP 5-10 mmHg) There is no pericardial effusion. No defenite evidence of endocarditis.Recommend MAINE if clinical suspicion is high. MMode/2D Measurements & Calculations RVDd: 2.3 cm LVIDd: 5.2 cm FS: 33.5 % Ao root diam: 3.6 cm IVSd: 0.95 cm LVIDs: 3.5 cm EDV(Teich): 131.0 ml Ao root area: 10.1 cm2 LVPWd: 0.91 cm ESV(Teich): 50.0 ml LA dimension: 3.1 cm EF(Teich): 61.9 % Doppler Measurements & Calculations MV E max parvez: MV P1/2t max parvez: Ao V2 max: LV V1 max P.3 cm/sec 77.7 cm/sec 144.5 cm/sec 6.7 mmHg MV A max parvez: MV P1/2t: 55.6 msec Ao max PG: LV V1 max: 109.6 cm/sec MVA(P1/2t): 4.0 cm2 8.3 mmHg 129.3 cm/sec MV E/A: 0.86 MV dec slope: 409.2 cm/sec2 MV dec time: 0.22 sec PA V2 max: MV P1/2t-pr_phl: 97.2 cm/sec 55.6 msec PA max P.8 mmHg Left Ventricle The left ventricle is normal in size. There is normal left ventricular wall thickness. LV EF is 55% to 60%. Left ventricular systolic function is normal. Doppler measurements suggest impaired left ventricular relaxation, which is associated with grade I/IV or mild diastolic dysfunction. The left ventricular wall motion is normal. There is no thrombus. No ASD,VSD,or PFOn seen. Right Ventricle The right ventricle is normal in size and function. Atria The right atrium is normal. The left atrial size is normal. Mitral Valve There is no evidence of mitral valve prolapse. There is no vegetation seen on the mitral valve. There is no mitral valve stenosis. There is a trace amount of mitral regurgitation. Aortic Valve There is no aortic valvular vegetation. There is no aortic valve stenosis. No aortic regurgitation is present. Tricuspid Valve There is no tricuspid valve vegetation. There is no tricuspid stenosis. There is a trace amount of tricuspid regurgitation. Tricuspid regurgitation jet envelope not well defined to measure RV systolic pressure accurately. Pulmonic Valve There is no pulmonic valvular stenosis. There is a trace amount of pulmonic regurgitation. Great Vessels The aortic root is normal size. The inferior vena cava appeared normal and decreased > 50% with respiration (RAP 5-10 mmHg). Effusions There is no pericardial effusion. : ANETA KIDD Lakshmi
--- NOTE | 2020-02-28 21:08 | Operative Report ---
Nonrecallable Operative Report DATE OF SURGERY: 02/28/20 PREOPERATIVE DIAGNOSIS: left arm abscess ivda POSTOPERATIVE DIAGNOSIS: thrombophlebitis of cephalic and bascilic vein OPERATION: phlebectomy of cephalic and basilic vein left arm SURGEON: NESHA LOPES ANESTHESIA: GA TISSUE REMOVED OR ALTERED: cephalic and basilic vein. COMPLICATIONS: none INTRAOPERATIVE FINDINGS: see note PROCEDURE: Patient was brought to the operating awake alert in stable condition placed on the operating table supine position induced under general anesthesia and intubated. The left arm was prepped and draped in usual sterile fashion. Patient had swelling over the upper and lower left arm. The swelling was over the basilic vein laterally on the lower left arm and the cephalic vein from the antecubital fossa to the deltopectoral groove on the upper arm. A long incision was made from the antecubital fossa and extended over the cephalic vein all the way up to the deltopectoral groove. The skin flaps were raised with blunt dissection noting a large amount of purulent fluid and the vein was easily identified with digital dissection was clamped in the antecubital fossa and clamped it in the deltopectoral groove and divided and removed. Hemostasis of the subcutaneous tissue and the muscles were obtained with Bovie cautery once the flaps were raised and the large fluid was released and the the vein was excised. Proximal distal control vein were obtained with 0 Vicryl. Similarly on the lateral left forearm a incision was over the this incision was about 10 cm long flaps were raised basilic vein. Medially and laterally with blunt and sharp dissection and using the Bovie cautery. The vein was came in the view was it was obviously thrombosed and purulent a hemostat was placed proximally and distally on the vein it was excised. Control was with 0 Vicryl suture at proximally and distally. After both veins were removed the wounds were copiously irrigated with normal saline suctioned dry and packed with Betadine soaked sponge. Sterile dressing was applied which completed the procedure. Estimated blood loss was approximately 100 cc sponge needle counts were correct x2. The patient was awakened in the negative pressure room where the operation was being performed because of his Covid status monitored there for 30 minutes and then transferred to recovery in stable condition.
[2020-02-28] MEDS ORDERED: LORAZEPAM INJ 2 MG/1 ML VIAL ONE ×2 (22:07→23:53)
[2020-02-28] MEDS ORDERED: LORAZEPAM INJ 2 MG/1 ML VIAL IV ONE (23:45)
[2020-02-29] MEDS: LORAZEPAM INJ 2 MG/1 ML VIAL IV PRN ×2 (00:30→05:59)
[2020-02-29] MEDS: WATER IV SCH ×6 (02:54→21:52)
[2020-02-29] MEDS: DEXTROSE 5% IV SCH ×6 (02:54→21:52)
[2020-02-29] MEDS: PENICILLIN POTASSIUM IV SCH ×6 (02:54→21:52)
[2020-02-29] MEDS: CLINDAMYCIN 900 MG/D5W RTU 900 MG/50 ML RTUPB IV SCH ×3 (02:55→17:45)
[2020-02-29] MEDS: KETOROLAC TROMETHAMINE INJ/PF 30 MG/1 ML SDV IV SCH ×3 (05:56→21:52)
[2020-02-29] MEDS: FAMOTIDINE 20 MG TABLET PO SCH ×4 (05:56→21:52)
[2020-02-29 06:23] LABS: HEMATOCRIT 31.2 % (37.9-51.0); HEMOGLOBIN 10.5 g/dL (13.5-17.0); MEAN CORPUSCULAR HEMOGLOBIN 26.5 pg (27.0-33.4); MEAN CORPUSCULAR HGB CONC 33.8 g/dL (32.0-36.0); MEAN CORPUSCULAR VOLUME 78 fl (80-97); PLATELET COUNT 214 10^3/uL (150-450); RED BLOOD COUNT 3.98 10^6/uL (4.35-5.55); RED CELL DISTRIBUTION WIDTH 15.1 % (11.5-14.0)
[2020-02-29 06:50] LABS: ALBUMIN 2.9 g/dL (3.5-5.0); ALKALINE PHOSPHATASE 90 U/L (38-126); ANION GAP 11 (5-19); ASPARTATE AMINO TRANSFERASE 20 U/L (17-59); BILIRUBIN,DIRECT 0.1 mg/dL (0.0-0.4); BILIRUBIN,TOTAL 0.8 mg/dL (0.2-1.3); BLOOD UREA NITROGEN 10 mg/dL (7-20); CALCIUM 8.6 mg/dL (8.4-10.2); CARBON DIOXIDE 23 mmol/L (22-30); CHLORIDE 103 mmol/L (98-107); GLUCOSE 102 mg/dL (75-110); POTASSIUM 3.7 mmol/L (3.6-5.0); TOTAL PROTEIN 5.8 g/dL (6.3-8.2)
[2020-02-29 07:22] LABS: ABSOLUTE LYMPHOCYTES# (MANUAL) 1.2 10^3/uL (0.5-4.7); ABSOLUTE MONOCYTES # (MANUAL) 1.6 10^3/uL (0.1-1.4); ANISOCYTOSIS 1+; BASOPHILS % (MANUAL) 0 % (0-2); EOSINOPHILS % (MANUAL) 0 % (0-6); LYMPHOCYTES % (MANUAL) 5 % (13-45); MONOCYTES % (MANUAL) 7 % (3-13); POIKILOCYTOSIS SLIGHT; POLYCHROMASIA SLIGHT; SEGMENTED NEUTROPHILS % (MAN) 88 % (42-78); TOTAL CELLS COUNTED 100
[2020-02-29 07:23] LABS: PLATELET COMMENT ADEQUATE
--- NOTE | 2020-02-29 08:57 | PDOC PROGRESS REPORT ---
Subjective Date:: 02/29/20 Reason For Visit: SEPSIS,LEFT UPPER EXTREMITY CELLULITIS,IV DRUG ABU Patient on the Covid floor, in contact, and respiratory isolation. Interview conducted with nurse Germán RN Physical Exam Vital Signs: Temp Pulse Resp BP Pulse Ox 98.7 F 88 24 H 154/67 H 100 02/29/20 07:40 02/29/20 07:40 02/29/20 07:40 02/29/20 07:40 02/29/20 07:40 Intake & Output 02/28/20 02/29/20 03/01/20 06:59 06:59 06:59 Intake Total 3000 1150 Output Total 1280 Balance 3000 -130 Weight 80 kg 77.8 kg Results Laboratory Results: 02/29/20 05:20 02/29/20 05:20 02/29/20 02/29/20 05:20 05:20 WBC 23.0 H RBC 3.98 L Hgb 10.5 L Hct 31.2 L MCV 78 L MCH 26.5 L MCHC 33.8 RDW 15.1 H Plt Count 214 Seg Neutrophils % Not Reportable Sodium 136.8 L Potassium 3.7 Chloride 103 Carbon Dioxide 23 Anion Gap 11 BUN 10 Creatinine 0.52 Est GFR ( Amer) > 60 Glucose 102 Calcium 8.6 Total Bilirubin 0.8 AST 20 Alkaline Phosphatase 90 Total Protein 5.8 L Albumin 2.9 L 02/27/20 21:52 Blood Blood Culture (PCR) - Final Strep Pyogenes (Grp A) 02/27/20 20:31 Blood Blood Culture (PCR) - Final Strep Pyogenes (Grp A) 02/27/20 20:31 Troponin I < 0.012 Impressions: Forearm X-Ray 02/27/20 22:28 IMPRESSION: No acute abnormality. Humerus X-Ray 02/27/20 22:29 IMPRESSION: 1. No acute bone findings Upper Extremity CT 02/28/20 00:00 IMPRESSION: Soft tissue edema. No new subcutaneous gas to suggest necrotizing fasciitis. Small left effusion. Venous Doppler Study 02/28/20 00:00 IMPRESSION: Occlusive SVT involving the cephalic vein as described. Assessment & Plan - Diagnosis (1) Superficial venous thrombosis of left arm Is this a current diagnosis for this admission?: Yes Plan: Impression: Patient is 12 hours status post left aRM exploration, debridement, phlebectomy of the basilic and saphenous veins for septic thrombosis and th rombophlebitis, hemodynamically stable; growing group A beta-hemolytic strep pyogenes, on appropriate antimicrobial therapy. Plan: 1. We will keep arm elevated, continue dressing changes, pain management with Toradol 2. Anticipate dressing change tomorrow under appropriate negative pressure con ditions. 3. The above discussed with nursing staff and hospitalist service. (2) Alcohol dependence with withdrawal, unspecified Qualifiers: Complication of substance-induced condition: uncomplicated Qualified Code(s): F10.230 - Alcohol dependence with withdrawal, uncomplicated Is this a current diagnosis for this admission?: Yes (3) Hyponatremia Is this a current diagnosis for this admission?: Yes (4) IV drug abuse Is this a current diagnosis for this admission?: Yes (5) Sepsis Qualifiers: Sepsis type: Streptococcus group A Sepsis acute organ dysfunction status: with acute organ dysfunction Severe sepsis acute organ dysfunction type: encephalopathy Severe sepsis shock status: without septic shock Qualified Code(s): A40.0 - Sepsis due to streptococcus, group A; R65.20 - Severe sepsis without septic shock; G93.41 - Metabolic encephalopathy - Time Anticipated Discharge Disposition: Home, Self Care Anticipated Discharge Timeframe: within 72 hours
[2020-02-29] MEDS: ASCORBIC ACID 500 MG TABLET PO SCH ×3 (09:38→17:45)
[2020-02-29] MEDS: CHOLECALCIFEROL (D3) 1,000 UNIT (25 MCG) TABLET PO SCH ×2 (09:39→09:58)
[2020-02-29] MEDS: NICOTINE 21 MG/24 HR PATCH.TD24 TD SCH (09:39)
[2020-02-29] MEDS: ENOXAPARIN SODIUM INJ 40 MG/0.4 ML DISP.SYRIN SUBCUT SCH (09:39)
[2020-02-29] MEDS ORDERED: ZINC SULFATE 220 MG CAPSULE PO SCH (10:00)
[2020-02-29] MEDS ORDERED: LORAZEPAM INJ 2 MG/1 ML VIAL IV PRN ×2 (13:58→15:44)
--- NOTE | 2020-02-29 16:04 | PDOC PROGRESS REPORT ---
Subjective Date:: 02/29/20 Subjective:: During evaluation this morning, patient was quite lethargic still. He had recei austyn some Ativan overnight due to some agitated behaviors and was noted to being three-point limb restraints. He could not really offer me any subjective. However later on in the day was informed that patient was more awak stated that there was meth and heroin very frequently ultimately uses alcohol once in a while. Reason For Visit: SEPSIS,LEFT UPPER EXTREMITY CELLULITIS,IV DRUG ABU Physical Exam Vital Signs: Temp Pulse Resp BP Pulse Ox 98.3 F 103 H 42 H 119/73 99 02/29/20 11:06 02/29/20 11:06 02/29/20 11:06 02/29/20 11:06 02/29/20 11:06 Intake & Output 02/28/20 02/29/20 03/01/20 06:59 06:59 06:59 Intake Total 3000 1150 400 Output Total 1280 Balance 3000 -130 400 Weight 80 kg 77.8 kg General appearance: PRESENT: mild distress Eye exam: PRESENT: PERRLA. ABSENT: scleral icterus Neck exam: ABSENT: JVD Respiratory exam: PRESENT: clear to auscultation martha, symmetrical, tachypnea, unlabored. ABSENT: accessory muscle use, retraction, wheezes Cardiovascular exam: PRESENT: +S1, +S2, tachycardia. ABSENT: irregular rhythm GI/Abdominal exam: PRESENT: soft. ABSENT: rebound, rigid, tenderness Extremities exam: PRESENT: other - erythematous tender swollen left arm. ABSENT: pedal edema Neurological exam: PRESENT: altered - very lethargic but awoke to pain and voice sometimes, other - moves all extremities easily with no notable weakness. Psychiatric exam: PRESENT: anxious. ABSENT: agitated Focused psych exam: PRESENT: restlessness. ABSENT: catatonic, internal stimuli, pressured speech Skin exam: PRESENT: other - wounds Results Laboratory Results: 02/29/20 05:20 02/29/20 05:20 02/29/20 02/29/20 05:20 05:20 WBC 23.0 H RBC 3.98 L Hgb 10.5 L Hct 31.2 L MCV 78 L MCH 26.5 L MCHC 33.8 RDW 15.1 H Plt Count 214 Seg Neutrophils % Not Reportable Sodium 136.8 L Potassium 3.7 Chloride 103 Carbon Dioxide 23 Anion Gap 11 BUN 10 Creatinine 0.52 Est GFR ( Amer) > 60 Glucose 102 Calcium 8.6 Total Bilirubin 0.8 AST 20 Alkaline Phosphatase 90 Total Protein 5.8 L Albumin 2.9 L 02/27/20 21:52 Blood Blood Culture (PCR) - Final Strep Pyogenes (Grp A) 02/27/20 20:31 Blood Blood Culture (PCR) - Final Strep Pyogenes (Grp A) 02/27/20 20:31 Troponin I < 0.012 Impressions: Forearm X-Ray 02/27/20 22:28 IMPRESSION: No acute abnormality. Humerus X-Ray 02/27/20 22:29 IMPRESSION: 1. No acute bone findings Upper Extremity CT 02/28/20 00:00 IMPRESSION: Soft tissue edema. No new subcutaneous gas to suggest necrotizing fasciitis. Small left effusion. Venous Doppler Study 02/28/20 00:00 IMPRESSION: Occlusive SVT involving the cephalic vein as described. Assessment and Plan - Diagnosis (1) Disease due to invasive group A beta-hemolytic Streptococcus Is this a current diagnosis for this admission?: Yes Plan: Group A strep bacteremia 2/2 inoculation from IV drug abuse and cellulitis Continue clindamycin + penicillin G. Can discontinue clindamycin tomorrow after 48-hour clem. Repeat blood culture today (2) Cellulitis of left upper extremity Is this a current diagnosis for this admission?: Yes Plan: Complicated cellulitis with abscess noted in the OR CT negative for necrotizing fascitis Continue antibiotics as prescribed. Continue Toradol as needed IV Dilaudid for pain control. (3) Superficial venous thrombosis of left arm Is this a current diagnosis for this admission?: Yes Plan: S/p exploration, debridement, phlebectomy of the basilic and cephalic veins for septic thrombosis and thrombophlebitis, hemodynamically stable; growing group A beta-hemolytic strep pyogenes, on appropriate antimicrobial therapy. We will keep arm elevated, continue dressing changes, pain management with Toradol Surgicalist anticipates dressing change tomorrow under appropriate negative pressure conditions. (4) Substance abuse withdrawal Qualifiers: Complication of substance-induced condition: with delirium Qualified Code(s): F19.131 - Other psychoactive substance abuse with withdrawal delirium Is this a current diagnosis for this admission?: Yes Plan: Now that we have been able to get more information from patient, it is unlikely that patient ever had alcohol withdrawal as he reports that he does not drink much. However he reports that he uses IV drugs pretty much every day including meth and heroine and he is possibly opiate withdrawal at this point. We will monitor him and treat supportively. We will reserve Ativan only to be used for significant agitation. (5) Sepsis Qualifiers: Sepsis type: Streptococcus group A Sepsis acute organ dysfunction status: with acute organ dysfunction Severe sepsis acute organ dysfunction type: encephalopathy Severe sepsis shock status: without septic shock Qualified Code(s): A40.0 - Sepsis due to streptococcus, group A; R65.20 - Severe sepsis without septic shock; G93.41 - Metabolic encephalopathy Is this a current diagnosis for this admission?: Yes Plan: Tachycardia is improved. Patient having good urinary output. Slow down IV fluid infusion rate (6) COVID-19 virus infection Is this a current diagnosis for this admission?: Yes Plan: Tested positive yesterday. It is possible he may have a Covid pneumonia as his chest x-ray does show some mild opacities in his left lower lung. His oxy genation however is very good on room air. Supportive care. Vitamin and zinc supplements. Antiviral and steroids not indicated at this point. (7) Hyponatremia Is this a current diagnosis for this admission?: Yes Plan: Markedly improved - Time Time Spent with patient: 15-24 minutes Anticipated Discharge Disposition: Home, Self Care Anticipated Discharge Timeframe: >72h
[2020-02-29] MEDS: HYDROMORPHONE HCL INJ/PF 2 MG/ML AMPULE IV PRN (19:34)
[2020-02-29] MEDS: DIPHENHYDRAMINE HCL 50 MG CAPSULE PO PRN (21:58)
[2020-03-01] MEDS: HYDROMORPHONE HCL INJ/PF 2 MG/ML AMPULE IV PRN ×6 (01:50→22:23)
[2020-03-01] MEDS: CLINDAMYCIN 900 MG/D5W RTU 900 MG/50 ML RTUPB IV SCH ×3 (01:51→17:27)
[2020-03-01] MEDS: PENICILLIN POTASSIUM IV SCH ×6 (01:51→22:23)
[2020-03-01] MEDS: DEXTROSE 5% IV SCH ×6 (01:51→22:23)
[2020-03-01] MEDS: WATER IV SCH ×6 (01:51→22:23)
[2020-03-01] MEDS: KETOROLAC TROMETHAMINE INJ/PF 30 MG/1 ML SDV IV SCH ×3 (05:29→22:23)
[2020-03-01 06:42] LABS: ABSOLUTE LYMPHOCYTES (AUTO) 0.9 10^3/uL (0.5-4.7); BASOPHILS % (AUTO) 0.2 % (0-2); EOSINOPHILS % (AUTO) 0.2 % (0-6); HEMATOCRIT 33.1 % (37.9-51.0); HEMOGLOBIN 11.1 g/dL (13.5-17.0); LYMPHOCYTES % (AUTO) 6.2 % (13-45); MEAN CORPUSCULAR HEMOGLOBIN 26.3 pg (27.0-33.4); MEAN CORPUSCULAR HGB CONC 33.4 g/dL (32.0-36.0); MEAN CORPUSCULAR VOLUME 79 fl (80-97); MONOCYTES % (AUTO) 6.4 % (3-13); PLATELET COUNT 262 10^3/uL (150-450); RED CELL DISTRIBUTION WIDTH 15.7 % (11.5-14.0); TOTAL CELLS COUNTED % (AUTO) 100 %; WHITE BLOOD COUNT 14.9 10^3/uL (4.0-10.5)
[2020-03-01 07:15] LABS: ALBUMIN 2.9 g/dL (3.5-5.0); ALKALINE PHOSPHATASE 94 U/L (38-126); ANION GAP 12 (5-19); ASPARTATE AMINO TRANSFERASE 33 U/L (17-59); BILIRUBIN,DIRECT 0.2 mg/dL (0.0-0.4); BILIRUBIN,TOTAL 0.6 mg/dL (0.2-1.3); BLOOD UREA NITROGEN 11 mg/dL (7-20); CALCIUM 7.9 mg/dL (8.4-10.2); CARBON DIOXIDE 24 mmol/L (22-30); CHLORIDE 101 mmol/L (98-107); GLUCOSE 125 mg/dL (75-110); POTASSIUM 3.5 mmol/L (3.6-5.0); TOTAL PROTEIN 5.8 g/dL (6.3-8.2)
[2020-03-01] MEDS ORDERED: POTASSIUM CHLORIDE 10 MEQ TABLET.ER PO ONE (08:45)
--- NOTE | 2020-03-01 09:28 | PDOC PROGRESS REPORT ---
Subjective Date:: 03/01/20 Reason For Visit: SEPSIS,LEFT UPPER EXTREMITY CELLULITIS,IV DRUG ABU Patient is postoperative day 2 status post extensive debridement left arm through 2 incisions, and multiple phlebectomies. No problems overnight. No fever. Patient remains in the Covid lee Physical Exam Vital Signs: Temp Pulse Resp BP Pulse Ox 98.7 F 109 H 19 130/69 H 98 03/01/20 08:48 03/01/20 07:09 03/01/20 07:09 03/01/20 07:09 03/01/20 07:09 Intake & Output 02/29/20 03/01/20 03/02/20 06:59 06:59 06:59 Intake Total 1150 1160 665 Output Total 1280 1075 Balance -130 85 665 Weight 77.8 kg 76.9 kg General appearance: PRESENT: no acute distress Musculoskeletal exam: PRESENT: other - All dressings removed and tolerated uneventfully by patient. Wound cavity is clean, no residual pus, foul smell. Surrounding skin with minimal erythema and edema Results Laboratory Results: 03/01/20 06:10 03/01/20 06:10 03/01/20 03/01/20 06:10 06:10 WBC 14.9 H RBC 4.20 L Hgb 11.1 L Hct 33.1 L MCV 79 L MCH 26.3 L MCHC 33.4 RDW 15.7 H Plt Count 262 Seg Neutrophils % 87.0 H Sodium 136.6 L Potassium 3.5 L Chloride 101 Carbon Dioxide 24 Anion Gap 12 BUN 11 Creatinine 0.54 Est GFR ( Amer) > 60 Glucose 125 H Calcium 7.9 L Total Bilirubin 0.6 AST 33 Alkaline Phosphatase 94 Total Protein 5.8 L Albumin 2.9 L 02/27/20 21:52 Blood Blood Culture (PCR) - Final Strep Pyogenes (Grp A) 02/27/20 21:52 Blood Blood Culture - Final Group A Beta Streptococcus 02/27/20 20:31 Blood Blood Culture (PCR) - Final Strep Pyogenes (Grp A) 02/27/20 20:31 Blood Blood Culture - Final Group A Beta Streptococcus 02/27/20 20:31 Troponin I < 0.012 Impressions: Forearm X-Ray 02/27/20 22:28 IMPRESSION: No acute abnormality. Humerus X-Ray 02/27/20 22:29 IMPRESSION: 1. No acute bone findings Upper Extremity CT 02/28/20 00:00 IMPRESSION: Soft tissue edema. No new subcutaneous gas to suggest necrotizing fasciitis. Small left effusion. Venous Doppler Study 02/28/20 00:00 IMPRESSION: Occlusive SVT involving the cephalic vein as described. Assessment & Plan - Diagnosis (1) Superficial venous thrombosis of left arm Is this a current diagnosis for this admission?: Yes Plan: Impression: Postoperative wounds are looking very good, no indication for further debridement. Sepsis controlled. On appropriate antibiotics for Streptococcus pyogenes, beta-hemolytic Plan: 1. Continue intravenous antibiotics; diet; stool softener 2. Nursing staff may start dressing changes tomorrow; orders written 3. Will order OT and PT for left upper extremity mobilization. 4. I reviewed the above care plan with nursing staff and hospitalist. (2) Alcohol dependence with withdrawal, unspecified Qualifiers: Complication of substance-induced condition: uncomplicated Qualified Code( s): F10.230 - Alcohol dependence with withdrawal, uncomplicated Is this a current diagnosis for this admission?: Yes (3) Hyponatremia Is this a current diagnosis for this admission?: Yes (4) IV drug abuse Is this a current diagnosis for this admission?: Yes (5) Sepsis Qualifiers: Sepsis type: Streptococcus group A Sepsis acute organ dysfunction status: with acute organ dysfunction Severe sepsis acute organ dysfunction type: encephalopathy Severe sepsis shock status: without septic shock Qualified Code(s): A40.0 - Sepsis due to streptococcus, group A; R65.20 - Severe sepsis without septic shock; G93.41 - Metabolic encephalopathy Is this a current diagnosis for this admission?: Yes - Time Anticipated Discharge Disposition: Home, Self Care Anticipated Discharge Timeframe: within 48 hours Time Spent: 30 to 50 Minutes
[2020-03-01] MEDS: FAMOTIDINE 20 MG TABLET PO SCH ×2 (10:22→22:23)
[2020-03-01] MEDS: DOCUSATE SODIUM 100 MG CAPSULE PO SCH ×2 (10:22→17:25)
[2020-03-01] MEDS: CHOLECALCIFEROL (D3) 1,000 UNIT (25 MCG) TABLET PO SCH (10:22)
[2020-03-01] MEDS: NICOTINE 21 MG/24 HR PATCH.TD24 TD SCH (10:23)
[2020-03-01] MEDS: ENOXAPARIN SODIUM INJ 40 MG/0.4 ML DISP.SYRIN SUBCUT SCH (10:23)
[2020-03-01] MEDS: ASCORBIC ACID 500 MG TABLET PO SCH ×2 (10:29→17:25)
[2020-03-01] MEDS ORDERED: LIDOCAINE 5% (700 MG) TRANSDERMAL ADH..PATCH TP PRN (13:43)
[2020-03-01] MEDS ORDERED: ACETAMINOPHEN 325 MG TABLET PO PRN (14:00)
--- NOTE | 2020-03-01 14:16 | PDOC PROGRESS REPORT ---
Subjective Date:: 03/01/20 Subjective:: Today, patient is back to his baseline mental status. He is alert and talking. Voices that he uses heroin daily. Occasionally uses meth and injected under his skin. He complains of pain which is pleuritic in nature over the left side of his chest in the axilla. Reason For Visit: SEPSIS,LEFT UPPER EXTREMITY CELLULITIS,IV DRUG ABU Physical Exam Vital Signs: Temp Pulse Resp BP Pulse Ox 99.1 F 105 H 18 141/65 H 100 03/01/20 11:22 03/01/20 11:22 03/01/20 11:22 03/01/20 11:22 03/01/20 11:22 Intake & Output 02/29/20 03/01/20 03/02/20 06:59 06:59 06:59 Intake Total 1150 1160 1459 Output Total 1280 1075 600 Balance -130 85 859 Weight 77.8 kg 76.9 kg General appearance: PRESENT: no acute distress, cooperative Neck exam: ABSENT: JVD Respiratory exam: PRESENT: chest wall tenderness - Occurring over the site of patient's chest pain, clear to auscultation martha, unlabored. ABSENT: tachypnea, wheezes Cardiovascular exam: PRESENT: +S1, +S2, tachycardia. ABSENT: irregular rhythm GI/Abdominal exam: PRESENT: soft. ABSENT: rebound, rigid, tenderness Extremities exam: PRESENT: other - other - erythematous tender swollen left arm. However it is notably improved Musculoskeletal exam: PRESENT: ambulatory Neurological exam: PRESENT: alert, awake, oriented to person, oriented to place, oriented to time, oriented to situation, other - Fully conversational Psychiatric exam: ABSENT: agitated, anxious Results Laboratory Results: 03/01/20 06:10 03/01/20 06:10 03/01/20 03/01/20 06:10 06:10 WBC 14.9 H RBC 4.20 L Hgb 11.1 L Hct 33.1 L MCV 79 L MCH 26.3 L MCHC 33.4 RDW 15.7 H Plt Count 262 Seg Neutrophils % 87.0 H Sodium 136.6 L Potassium 3.5 L Chloride 101 Carbon Dioxide 24 Anion Gap 12 BUN 11 Creatinine 0.54 Est GFR ( Amer) > 60 Glucose 125 H Calcium 7.9 L Total Bilirubin 0.6 AST 33 Alkaline Phosphatase 94 Total Protein 5.8 L Albumin 2.9 L 02/27/20 21:52 Blood Blood Culture (PCR) - Final Strep Pyogenes (Grp A) 02/27/20 21:52 Blood Blood Culture - Final Group A Beta Streptococcus 02/27/20 20:31 Blood Blood Culture (PCR) - Final Strep Pyogenes (Grp A) 02/27/20 20:31 Blood Blood Culture - Final Group A Beta Streptococcus 02/27/20 20:31 Troponin I < 0.012 Impressions: Forearm X-Ray 02/27/20 22:28 IMPRESSION: No acute abnormality. Humerus X-Ray 02/27/20 22:29 IMPRESSION: 1. No acute bone findings Upper Extremity CT 02/28/20 00:00 IMPRESSION: Soft tissue edema. No new subcutaneous gas to suggest necrotizing fasciitis. Small left effusion. Venous Doppler Study 02/28/20 00:00 IMPRESSION: Occlusive SVT involving the cephalic vein as described. Assessment and Plan - Diagnosis (1) Disease due to invasive group A beta-hemolytic Streptococcus Is this a current diagnosis for this admission?: Yes Plan: Group A strep bacteremia 2/2 inoculation from IV drug abuse and cellulitis Continue clindamycin + penicillin G. Will discontinue clindamycin this evening after 48-hour clem. Repeat blood culture is negative so far -we will monitor (2) Cellulitis of left upper extremity Is this a current diagnosis for this admission?: Yes Plan: Complicated cellulitis with abscess noted in the OR CT negative for necrotizing fascitis Continue antibiotics as prescribed. Continue Toradol as needed IV Dilaudid for pain control. Augment with Tylenol to help with pain control. Bowel regimen (3) Superficial venous thrombosis of left arm Is this a current diagnosis for this admission?: Yes Plan: S/p exploration, debridement, phlebectomy of the basilic and cephalic veins for septic thrombosis and thrombophlebitis. We will keep arm elevated, continue dressing changes, pain management. Surgicalist evaluated wound today and looks okay for now. PT/OT recommended. (4) Substance abuse withdrawal Qualifiers: Complication of substance-induced condition: with delirium Qualified Code(s): F19.131 - Other psychoactive substance abuse with withdrawal delirium Is this a current diagnosis for this admission?: Yes Plan: Reports that he uses IV drugs pretty much every day including meth and heroine. On my encounter today, he does not seem to be in significant withdrawal. We will monitor him and treat supportively. We will reserve Ativan only to be used for significant anxiety or agitation. (5) Sepsis Qualifiers: Sepsis type: Streptococcus group A Sepsis acute organ dysfunction status: with acute organ dysfunction Severe sepsis acute organ dysfunction type: encephalopathy Severe sepsis shock status: without septic shock Qualified Code(s): A40.0 - Sepsis due to streptococcus, group A; R65.20 - Severe sepsis without septic shock; G93.41 - Metabolic encephalopathy Is this a current diagnosis for this admission?: Yes Plan: Tachycardia is improved. Leukocytosis is coming down. Acute encephalopathy has resolved. Patient having good urinary output. Discontinue IV fluids. Monitor CBC. (6) COVID-19 virus infection Is this a current diagnosis for this admission?: Yes Plan: Tested positive incidentally on admission. It is possible he may have a Covid pneumonia as his chest x-ray does show some mild opacities in his left lower lung. However, his oxygenation is very good on room air in high 90s-100% indica ting only mild disease. Supportive care. Vitamin and zinc supplements. Antiviral and steroids not indicated at this point. Airborne isolation (7) Pleuritic chest pain Is this a current diagnosis for this admission?: Yes Plan: Musculoskeletal pain. Quite tender on palpation. No evidence of fractures on chest imaging. Treat supportively with pain medications and can try lidocaine patch. (8) Hyponatremia Is this a current diagnosis for this admission?: Yes - Time Time Spent with patient: 25-34 minutes Anticipated Discharge Disposition: Home, Self Care Anticipated Discharge Timeframe: unknown
[2020-03-01] MEDS: DIPHENHYDRAMINE HCL 50 MG CAPSULE PO PRN (22:24)
[2020-03-02] MEDS: WATER IV SCH ×6 (02:27→22:07)
[2020-03-02] MEDS: PENICILLIN POTASSIUM IV SCH ×6 (02:27→22:07)
[2020-03-02] MEDS: DEXTROSE 5% IV SCH ×6 (02:27→22:07)
[2020-03-02] MEDS: HYDROMORPHONE HCL INJ/PF 2 MG/ML AMPULE IV PRN ×5 (02:27→22:48)
[2020-03-02] MEDS: KETOROLAC TROMETHAMINE INJ/PF 30 MG/1 ML SDV IV SCH ×3 (06:25→22:06)
[2020-03-02 06:37] LABS: ABSOLUTE RETICS # 0.031 10^6/uL (0.028-0.122); MEAN CORPUSCULAR HEMOGLOBIN 26.4 pg (27.0-33.4); MEAN CORPUSCULAR HGB CONC 33.4 g/dL (32.0-36.0); MEAN CORPUSCULAR VOLUME 79 fl (80-97); PLATELET COUNT 316 10^3/uL (150-450); RED BLOOD COUNT 4.18 10^6/uL (4.35-5.55); RED CELL DISTRIBUTION WIDTH 15.8 % (11.5-14.0); RETICULOCYTE COUNT (AUTO) 0.74 % (0.66-2.85); WHITE BLOOD COUNT 9.2 10^3/uL (4.0-10.5)
[2020-03-02 07:29] LABS: ANION GAP 9 (5-19); BLOOD UREA NITROGEN 9 mg/dL (7-20); CALCIUM 8.1 mg/dL (8.4-10.2); CARBON DIOXIDE 25 mmol/L (22-30); CHLORIDE 102 mmol/L (98-107); GLUCOSE 117 mg/dL (75-110); POTASSIUM 3.8 mmol/L (3.6-5.0)
[2020-03-02 08:37] LABS: FOLATE 5.51 ng/mL (>2.76)
[2020-03-02 08:49] LABS: IRON(TIBC) < 10.1 ug/dL (49-181)
[2020-03-02] MEDS: ASCORBIC ACID 500 MG TABLET PO SCH ×2 (10:43→17:31)
[2020-03-02] MEDS: CHOLECALCIFEROL (D3) 1,000 UNIT (25 MCG) TABLET PO SCH (10:43)
[2020-03-02] MEDS: DOCUSATE SODIUM 100 MG CAPSULE PO SCH ×2 (10:43→17:31)
[2020-03-02] MEDS: NICOTINE 21 MG/24 HR PATCH.TD24 TD SCH (10:44)
[2020-03-02] MEDS: ENOXAPARIN SODIUM INJ 40 MG/0.4 ML DISP.SYRIN SUBCUT SCH (10:44)
[2020-03-02] MEDS: FAMOTIDINE 20 MG TABLET PO SCH ×2 (10:46→22:07)
--- NOTE | 2020-03-02 14:32 | PDOC PROGRESS REPORT ---
Subjective Date:: 03/02/20 Reason For Visit: SEPSIS,LEFT UPPER EXTREMITY CELLULITIS,IV DRUG ABU Physical Exam Vital Signs: Temp Pulse Resp BP Pulse Ox 99.4 F 97 17 129/67 H 100 03/02/20 11:56 03/02/20 11:56 03/02/20 11:56 03/02/20 11:56 03/02/20 11:56 Intake & Output 03/01/20 03/02/20 03/03/20 06:59 06:59 06:59 Intake Total 1160 2004 Output Total 1075 600 Balance 85 1405 Weight 76.9 kg 77.2 kg Results Laboratory Results: 03/02/20 05:53 03/02/20 05:53 03/02/20 03/02/20 05:53 05:53 WBC 9.2 RBC 4.18 L Hgb 11.0 L Hct 33.0 L MCV 79 L MCH 26.4 L MCHC 33.4 RDW 15.8 H Plt Count 316 Retic Count (auto) 0.74 Sodium 136.0 L Potassium 3.8 Chloride 102 Carbon Dioxide 25 Anion Gap 9 BUN 9 Creatinine 0.47 L Est GFR ( Amer) > 60 Glucose 117 H Calcium 8.1 L Iron < 10.1 L TIBC 184 L Ferritin 262.00 Vitamin B12 637.0 Folate 5.51 02/27/20 20:31 Troponin I < 0.012 Impressions: Forearm X-Ray 02/27/20 22:28 IMPRESSION: No acute abnormality. Humerus X-Ray 02/27/20 22:29 IMPRESSION: 1. No acute bone findings Upper Extremity CT 02/28/20 00:00 IMPRESSION: Soft tissue edema. No new subcutaneous gas to suggest necrotizing fasciitis. Small left effusion. Venous Doppler Study 02/28/20 00:00 IMPRESSION: Occlusive SVT involving the cephalic vein as described. Assessment & Plan - Diagnosis (1) Septic thrombophlebitis of upper extremities Is this a current diagnosis for this admission?: Yes - Time Anticipated Discharge Disposition: Home with Home Health Anticipated Discharge Timeframe: unknown - Plan Summary Plan Summary: 39-year-old male status post excision of cephalic and basilic veins of the left upper extremity due to septic thrombophlebitis. The patient reports pain, however he denies any subjective fevers or chills. His T-max over the last 24 hours is 99.4. He continues to receive intravenous antibiotics. The dressing change was done by the nursing staff today. They report healthy tissue, without signs of purulence. Increase dressing changes to twice daily. Surgery will continue to follow. Consult social work for home health and [facility] to assist with twice daily damp to dry dressing changes.
--- NOTE | 2020-03-02 16:57 | PDOC PROGRESS REPORT ---
Subjective Date:: 03/02/20 Subjective:: Patient complaining of a sharp chest pain over the left chest. He says it is very bad. It is stabbing at times. He states it is a very severe pain. Next reports that it is worse when he coughs or takes a deep breath. Any movement aggravates the pain. He would like more pain medicine. Reason For Visit: SEPSIS,LEFT UPPER EXTREMITY CELLULITIS,IV DRUG ABU Physical Exam Vital Signs: Temp Pulse Resp BP Pulse Ox 99.4 F 105 H 17 129/67 H 100 03/02/20 11:56 03/02/20 14:00 03/02/20 11:56 03/02/20 11:56 03/02/20 11:56 Intake & Output 03/01/20 03/02/20 03/03/20 06:59 06:59 06:59 Intake Total 1160 2005 Output Total 1075 600 Balance 85 1405 Weight 76.9 kg 77.2 kg General appearance: PRESENT: cooperative, severe distress, well-developed Head exam: PRESENT: atraumatic, normocephalic Eye exam: PRESENT: conjunctiva pink. ABSENT: scleral icterus Ear exam: PRESENT: normal external ear exam. ABSENT: bleeding, drainage Mouth exam: PRESENT: moist, tongue midline Respiratory exam: PRESENT: clear to auscultation martha, symmetrical, unlabored, other - Marked discomfort on inspiration. ABSENT: rales, rhonchi, tachypnea, wheezes Cardiovascular exam: PRESENT: RRR, +S1, +S2. ABSENT: bradycardia, diastolic murmur, irregular rhythm, systolic murmur, tachycardia Results Laboratory Results: 03/02/20 05:53 03/02/20 05:53 03/02/20 03/02/20 05:53 05:53 WBC 9.2 RBC 4.18 L Hgb 11.0 L Hct 33.0 L MCV 79 L MCH 26.4 L MCHC 33.4 RDW 15.8 H Plt Count 316 Retic Count (auto) 0.74 Sodium 136.0 L Potassium 3.8 Chloride 102 Carbon Dioxide 25 Anion Gap 9 BUN 9 Creatinine 0.47 L Est GFR ( Amer) > 60 Glucose 117 H Calcium 8.1 L Iron < 10.1 L TIBC 184 L Ferritin 262.00 Vitamin B12 637.0 Folate 5.51 02/27/20 20:31 Troponin I < 0.012 Impressions: Forearm X-Ray 02/27/20 22:28 IMPRESSION: No acute abnormality. Humerus X-Ray 02/27/20 22:29 IMPRESSION: 1. No acute bone findings Upper Extremity CT 02/28/20 00:00 IMPRESSION: Soft tissue edema. No new subcutaneous gas to suggest necrotizing fasciitis. Small left effusion. Venous Doppler Study 02/28/20 00:00 IMPRESSION: Occlusive SVT involving the cephalic vein as described. Assessment and Plan - Diagnosis (1) Disease due to invasive group A beta-hemolytic Streptococcus Is this a current diagnosis for this admission?: Yes Plan: Group A strep bacteremia 2/2 inoculation from IV drug abuse and cellulitis Continue clindamycin + penicillin G. Will discontinue clindamycin this evening after 48-hour clem. Repeat blood culture is negative so far -we will monitor 03/02/2020-continue penicillin G. We will need to consider outpatient antibiotic choice as the patient is getting closer to discharge. White blood cell count has normalized. (2) Cellulitis of left upper extremity Is this a current diagnosis for this admission?: Yes Plan: Complicated cellulitis with abscess noted in the OR CT negative for necrotizing fascitis Continue antibiotics as prescribed. Continue Toradol as needed IV Dilaudid for pain control. Augment with Tylenol to help with pain control. Bowel regimen 03/02/2020-continue current pain management and dressing changes. (3) Superficial venous thrombosis of left arm Is this a current diagnosis for this admission?: Yes Plan: S/p exploration, debridement, phlebectomy of the basilic and cephalic veins for septic thrombosis and thrombophlebitis. We will keep arm elevated, continue dressing changes, pain management. Surgicalist evaluated wound today and looks okay for now. PT/OT recommended. 03/02/2020-continue Lovenox prophylaxis dose. Physical therapy did see the patient. Left arm function limited by dressings. See also physical therapy note. (4) Substance abuse withdrawal Qualifiers: Complication of substance-induced condition: with delirium Qualified Code(s): F19.131 - Other psychoactive substance abuse with withdrawal delirium Is this a current diagnosis for this admission?: Yes Plan: Reports that he uses IV drugs pretty much every day including meth and heroine. On my encounter today, he does not seem to be in significant withdrawal. We will monitor him and treat supportively. We will reserve Ativan only to be used for significant anxiety or agitation. 03/02/2020-continue current regimen per Dr. De Los Santos. We will add scheduled anti- inflammatory for what is likely pleurisy. As needed Toradol IV is also available. (5) Sepsis Qualifiers: Sepsis type: Streptococcus group A Sepsis acute organ dysfunction status: with acute organ dysfunction Severe sepsis acute organ dysfunction type: en cephalopathy Severe sepsis shock status: without septic shock Qualified Code(s): A40.0 - Sepsis due to streptococcus, group A; R65.20 - Severe sepsis without septic shock; G93.41 - Metabolic encephalopathy Is this a current diagnosis for this admission?: Yes Plan: Tachycardia is improved. Leukocytosis is coming down. Acute encephalopathy has resolved. Patient having good urinary output. Discontinue IV fluids. Monitor CBC. 03/02/2020-sepsis resolved (6) COVID-19 virus infection Is this a current diagnosis for this admission?: Yes Plan: Tested positive incidentally on admission. It is possible he may have a Covid pneumonia as his chest x-ray does show some mild opacities in his left lower lung. However, his oxygenation is very good on room air in high 90s-100% indicating only mild disease. Supportive care. Vitamin and zinc supplements. Antiviral and steroids not indicated at this point. Airborne isolation 03/02/2020-continue isolation precautions. Supplements ongoing. (7) Pleuritic chest pain Is this a current diagnosis for this admission?: Yes Plan: Musculoskeletal pain. Quite tender on palpation. No evidence of fractures on chest imaging. Treat supportively with pain medications and can try lidocaine patch. 03/02/2020-did not specifically hear any rub but the patient's inspiratory phase was shortened due to pain. In addition to the Lidoderm patch I am going to start scheduled indomethacin trial. (8) Hyponatremia Is this a current diagnosis for this admission?: Yes Plan: Markedly improved 03/02/2020-serum sodium 136. Appears to be stable in this range over the last several days. - Time Time Spent with patient: 15-24 minutes Medications reviewed and adjusted accordingly: Yes Anticipated Discharge Disposition: Home, Self Care Anticipated Discharge Timeframe: within 72 hours
[2020-03-02] MEDS: FERROUS SULFATE 325 MG TABLET PO SCH (17:32)
[2020-03-02] MEDS: INDOMETHACIN 25 MG CAPSULE PO SCH (22:08)
[2020-03-03] MEDS: PENICILLIN POTASSIUM IV SCH ×3 (02:21→10:25)
[2020-03-03] MEDS: WATER IV SCH ×3 (02:21→10:25)
[2020-03-03] MEDS: DEXTROSE 5% IV SCH ×3 (02:21→10:25)
[2020-03-03] MEDS: HYDROMORPHONE HCL INJ/PF 2 MG/ML AMPULE IV PRN ×2 (04:26→09:07)
[2020-03-03] MEDS: INDOMETHACIN 25 MG CAPSULE PO SCH ×2 (05:06→13:07)
[2020-03-03] MEDS: KETOROLAC TROMETHAMINE INJ/PF 30 MG/1 ML SDV IV SCH ×2 (05:06→13:07)
[2020-03-03] MEDS: DOCUSATE SODIUM 100 MG CAPSULE PO SCH (09:08)
[2020-03-03] MEDS: CHOLECALCIFEROL (D3) 1,000 UNIT (25 MCG) TABLET PO SCH (09:08)
[2020-03-03] MEDS: ASCORBIC ACID 500 MG TABLET PO SCH (09:09)
[2020-03-03] MEDS: ENOXAPARIN SODIUM INJ 40 MG/0.4 ML DISP.SYRIN SUBCUT SCH (09:09)
[2020-03-03] MEDS: FAMOTIDINE 20 MG TABLET PO SCH (09:10)
[2020-03-03] MEDS: NICOTINE 21 MG/24 HR PATCH.TD24 TD SCH (09:10)
[2020-03-03] MEDS: FERROUS SULFATE 325 MG TABLET PO SCH ×2 (09:11→12:48)
[2020-03-03] MEDS ORDERED: ZINC SULFATE 220 MG CAPSULE PO SCH (10:00)
--- NOTE | 2020-03-03 10:21 | PDOC PROGRESS REPORT ---
Subjective Date:: 03/03/20 Reason For Visit: SEPSIS,LEFT UPPER EXTREMITY CELLULITIS,IV DRUG ABU Patient is day 4 status post wide debridement, phlebectomies left upper extremity. Physical Exam Vital Signs: Temp Pulse Resp BP Pulse Ox 99.0 F 89 18 125/64 99 03/03/20 07:40 03/03/20 07:34 03/03/20 07:34 03/03/20 07:34 03/03/20 07:34 Intake & Output 03/02/20 03/03/20 03/04/20 06:59 06:59 06:59 Intake Total 20040 Output Total 600 2550 Balance 1405 -1340 Weight 77.2 kg 78.1 kg General appearance: PRESENT: no acute distress Musculoskeletal exam: PRESENT: other - Dressings dry and intact; dressing changes being performed twice a day by nursing staff; range of motion of elbow and wrist limited secondary to pain Results Laboratory Results: 03/02/20 05:53 03/02/20 05:53 02/28/20 20:30 Arm - Left Cellulitis Gram Stain - Final 02/28/20 20:30 Arm - Left Cellulitis Wound Culture - Final NO AEROBIC OR ANAEROBIC ORGANISMS RECOVERED 02/27/20 20:31 Troponin I < 0.012 Impressions: Forearm X-Ray 02/27/20 22:28 IMPRESSION: No acute abnormality. Humerus X-Ray 02/27/20 22:29 IMPRESSION: 1. No acute bone findings Upper Extremity CT 02/28/20 00:00 IMPRESSION: Soft tissue edema. No new subcutaneous gas to suggest necrotizing fasciitis. Small left effusion. Venous Doppler Study 02/28/20 00:00 IMPRESSION: Occlusive SVT involving the cephalic vein as described. Assessment & Plan - Diagnosis (1) Superficial venous thrombosis of left arm Is this a current diagnosis for this admission?: Yes Plan: Impression: Satisfactory patient of left upper extremity aggressive debridement, and phlebectomies for soft tissue infection and thrombophlebitis, undergoing dressing changes, intravenous antibiotics. Patient growing Streptococcus with appropriate for age. Recommendations: 1. Continue dressing changes as being performed by nursing staff; patient could be managed on an outpatient basis with p.o. antibiotics 2. Patient to follow-up with [facility], Dr. Pasha Beebe, in 1 to 2 weeks after discharge from [facility] 3. Surgery will sign off; please reconsult if clinically indicated. (2) Alcohol dependence with withdrawal, unspecified Qualifiers: Complication of substance-induced condition: uncomplicated Qualified Code(s): F10.230 - Alcohol dependence with withdrawal, uncomplicated Is this a current diagnosis for this admission?: Yes (3) Hyponatremia Is this a current diagnosis for this admission?: Yes (4) IV drug abuse Is this a current diagnosis for this admission?: Yes (5) Sepsis Qualifiers: Sepsis type: Streptococcus group A Sepsis acute organ dysfunction status: with acute organ dysfunction Severe sepsis acute organ dysfunction type: encephalopathy Severe sepsis shock status: without septic shock Qualified Code(s): A40.0 - Sepsis due to streptococcus, group A; R65.20 - Severe sepsis without septic shock; G93.41 - Metabolic encephalopathy Is this a current diagnosis for this admission?: Yes - Time Anticipated Discharge Disposition: Home with Home Health Anticipated Discharge Timeframe: within 24 hours Time Spent: 30 to 50 Minutes Smoking Cessation Education: 3 to 10 minutes Medications reviewed and adjusted accordingly: Yes
--- NOTE | 2020-03-03 14:07 | PDOC DISCHARGE SUMMARY ---
Impression - Admit/DC Date/PCP Admission Date/Primary Care Provider: 02/27/20 22:39 Discharge Date: 03/03/20 - Discharge Diagnosis (1) Disease due to invasive group A beta-hemolytic Streptococcus Is this a current diagnosis for this admission?: Yes (2) Cellulitis of left upper extremity Is this a current diagnosis for this admission?: Yes (3) Superficial venous thrombosis of left arm Is this a current diagnosis for this admission?: Yes (4) Substance abuse withdrawal Is this a current diagnosis for this admission?: Yes (5) Sepsis Is this a current diagnosis for this admission?: Yes (6) COVID-19 virus infection Is this a current diagnosis for this admission?: Yes (7) Pleuritic chest pain Is this a current diagnosis for this admission?: Yes (8) Hyponatremia Is this a current diagnosis for this admission?: Yes - Additional Information Resuscitation Status: Full Code Discharge Diet: Regular Discharge Activity: Activity As Tolerated Referrals: NESHA LOPES MD [ACTIVE STAFF] - 03/13/20 1:15 pm Prescriptions: Amoxicillin 1 tab PO TID #30 tab Indomethacin [Indocin 25 mg Capsule] 25 mg PO Q8 10 Days #30 capsule Lidocaine [Lidoderm 5% (700 mg) Transdermal Patch] 1 patch TP DAILY #5 adh..patch Oxycodone HCl/Acetaminophen [Oxycodone-Acetaminophen 10-325] 1 each PO Q6 PRN 10 Days #20 tablet PRN Reason: For Pain Scale 4-5 Home Medications: Amoxicillin 1 tab PO TID #30 tab 03/03/20 Ferrous Sulfate [Feosol 325 mg Tablet] 325 mg PO MEALS tablet 03/03/20 Indomethacin [Indocin 25 mg Capsule] 25 mg PO Q8 10 Days #30 capsule 03/03/20 Lidocaine [Lidoderm 5% (700 mg) Transdermal Patch] 1 patch TP DAILY #5 adh..patch 03/03/20 Nicotine [Nicoderm 21 mg/24 Hr Transderm Patch] 1 each TD DAILY patch.td24 03/03/20 Oxycodone HCl/Acetaminophen [Oxycodone-Acetaminophen 10-325] 1 each PO Q6 PRN 10 Days #20 tablet 03/03/20 History of Present Illiness History of Present Illness: MARTINEZ YOUNGER is a 39 year old male with a history of IV drug use now presents to the ER with 3 days duration of left arm swelling with associated severe excruciating 10/10 intensity, constant dull aching pain. Patient states that the swelling, pain and redness started around his left elbow and it progressively got no worse to attain its current size. He also reports that it started at the site where he injected himself IV drug few days back. He also endorses associated fever, chills. He states that he has been using heroin and crystal meth. Patient denies shortness of breath, lightheadedness, nausea, vomiting, abdominal pain, diarrhea, dysuria, frequency of urination, leg swelling. He also denies any cough, hemoptysis, runny nose, sore throat or any recent sick contact history. Hospital Course Hospital Course: Patient presented with severe infection left upper extremity including infected thrombophlebitis. 2 surgical incisions were made and tissue removed. The patient is currently on antibiotic therapy for strep pyogenes infection. He is also Covid positive but in fact is not having any respiratory symptoms. Surgery has signed off. The patient is stable for discharge. He will be given some supplies for dressing changes until he is seen at the surgical clinic. Prescriptions electronically sent as above. Physical Exam Vital Signs: Temp Pulse Resp BP Pulse Ox 99.0 F 103 H 18 122/54 L 98 03/03/20 11:26 03/03/20 11:26 03/03/20 11:26 03/03/20 11:26 03/03/20 11:26 Intake & Output 03/02/20 03/03/20 03/04/20 06:59 06:59 06:59 Intake Total 2004 1210 Output Total 600 2550 Balance 1405 -1340 Weight 77.2 kg 78.1 kg General appearance: PRESENT: no acute distress, cooperative Respiratory exam: PRESENT: chest wall tenderness - Still with left-sided chest wall tenderness, clear to auscultation martha, symmetrical, unlabored. ABSENT: rales, rhonchi, tachypnea, wheezes Cardiovascular exam: PRESENT: RRR, +S1, +S2. ABSENT: bradycardia, diastolic murmur, irregular rhythm, systolic murmur, tachycardia GI/Abdominal exam: PRESENT: normal bowel sounds, soft. ABSENT: distended, guarding, tenderness Neurological exam: PRESENT: alert, awake, oriented to person, oriented to place, oriented to time, oriented to situation Results Laboratory Results: WBC 9.2 10^3/uL (4.0-10.5) 03/02/20 05:53 RBC 4.18 10^6/uL (4.35-5.55) L 03/02/20 05:53 Hgb 11.0 g/dL (13.5-17.0) L 03/02/20 05:53 Hct 33.0 % (37.9-51.0) L 03/02/20 05:53 MCV 79 fl (80-97) L 03/02/20 05:53 MCH 26.4 pg (27.0-33.4) L 03/02/20 05:53 MCHC 33.4 g/dL (32.0-36.0) 03/02/20 05:53 RDW 15.8 % (11.5-14.0) H 03/02/20 05:53 Plt Count 316 10^3/uL (150-450) 03/02/20 05:53 Lymph % (Auto) 6.2 % (13-45) L 03/01/20 06:10 [place] % (Auto) 6.4 % (3-13) 03/01/20 06:10 Eos % (Auto) 0.2 % (0-6) 03/01/20 06:10 Baso % (Auto) 0.2 % (0-2) 03/01/20 06:10 Reticulocyte # 0.031 10^6/uL (0.028-0.122) 03/02/20 05:53 Absolute Neuts (auto) 13.0 10^3/uL (1.7-8.2) H 03/01/20 06:10 Absolute Lymphs (auto) 0.9 10^3/uL (0.5-4.7) 03/01/20 06:10 Absolute Monos (auto) 1.0 10^3/uL (0.1-1.4) 03/01/20 06:10 Absolute Eos (auto) 0.0 10^3/uL (0.0-0.6) 03/01/20 06:10 Absolute Basos (auto) 0.0 10^3/uL (0.0-0.2) 03/01/20 06:10 Total Counted 100 02/29/20 05:20 Seg Neutrophils % 87.0 % (42-78) H 03/01/20 06:10 Seg Neuts % (Manual) 88 % (42-78) H 02/29/20 05:20 Band Neutrophils % 1 % (3-5) L 02/28/20 06:41 Lymphocytes % (Manual) 5 % (13-45) L 02/29/20 05:20 Monocytes % (Manual) 7 % (3-13) 02/29/20 05:20 Eosinophils % (Manual) 0 % (0-6) 02/29/20 05:20 Basophils % (Manual) 0 % (0-2) 02/29/20 05:20 Abs Neuts (Manual) 20.2 10^3/uL (1.7-8.2) H 02/29/20 05:20 Abs Lymphs (Manual) 1.2 10^3/uL (0.5-4.7) 02/29/20 05:20 Abs Monocytes (Manual) 1.6 10^3/uL (0.1-1.4) H 02/29/20 05:20 Absolute Eos (Manual) 0.0 10^3/uL (0.0-0.6) 02/29/20 05:20 Abs Basophils (Manual) 0.0 10^3/uL (0.0-0.2) 02/29/20 05:20 Toxic Vacuolation PRESENT 02/27/20 20:31 Platelet Comment ADEQUATE 02/29/20 05:20 Polychromasia SLIGHT 02/29/20 05:20 Poikilocytosis SLIGHT 02/29/20 05:20 Anisocytosis 1+ 02/29/20 05:20 Microcytosis SLIGHT 02/28/20 06:41 Ovalocytes SLIGHT 02/28/20 06:41 Retic Count (auto) 0.74 % (0.66-2.85) 03/02/20 05:53 PT 15.5 SEC (11.4-15.4) H 02/28/20 14:52 INR 1.21 02/28/20 14:52 APTT 38.1 SEC (23.5-35.8) H 02/28/20 14:52 Sodium 136.0 mmol/L (137-145) L 03/02/20 05:53 Potassium 3.8 mmol/L (3.6-5.0) 03/02/20 05:53 Chloride 102 mmol/L (98-107) 03/02/20 05:53 Carbon Dioxide 25 mmol/L (22-30) 03/02/20 05:53 Anion Gap 9 (5-19) 03/02/20 05:53 BUN 9 mg/dL (7-20) 03/02/20 05:53 Creatinine 0.47 mg/dL (0.52-1.25) L 03/02/20 05:53 Est GFR ( Amer) > 60 (>60) 03/02/20 05:53 Est GFR (MDRD) Non-Af > 60 (>60) 03/02/20 05:53 Glucose 117 mg/dL (75-110) H 03/02/20 05:53 Lactic Acid 1.7 mmol/L (0.7-2.1) 02/28/20 06:41 Calcium 8.1 mg/dL (8.4-10.2) L 03/02/20 05:53 Iron < 10.1 ug/dL (49-181) L 03/02/20 05:53 TIBC 184 ug/dL (250-450) L 03/02/20 05:53 Iron Saturation UNABLE TO CALCULATE % (20% - 50%) 03/02/20 05:53 Ferritin 262.00 ng/mL (17.9-464.0) 03/02/20 05:53 Total Bilirubin 0.6 mg/dL (0.2-1.3) 03/01/20 06:10 Direct Bilirubin 0.2 mg/dL (0.0-0.4) 03/01/20 06:10 Neonat Total Bilirubin Not Reportable 03/01/20 06:10 Neonat Direct Bilirubin Not Reportable 03/01/20 06:10 Neonat Indirect Bili Not Reportable 03/01/20 06:10 AST 33 U/L (17-59) 03/01/20 06:10 ALT 27 U/L (<50) 03/01/20 06:10 Alkaline Phosphatase 94 U/L (38-126) 03/01/20 06:10 Troponin I < 0.012 ng/mL 02/27/20 20:31 Total Protein 5.8 g/dL (6.3-8.2) L 03/01/20 06:10 Albumin 2.9 g/dL (3.5-5.0) L 03/01/20 06:10 Vitamin B12 637.0 pg/mL (239-931) 03/02/20 05:53 Folate 5.51 ng/mL (>2.76) 03/02/20 05:53 Urine Color YELLOW 02/27/20 22:14 Urine Appearance CLEAR 02/27/20 22:14 Urine pH 6.0 (5.0-9.0) 02/27/20 22:14 Ur Specific [place] 1.025 02/27/20 22:14 Urine Protein 100 mg/dL (NEGATIVE) H 02/27/20 22:14 Urine Glucose (UA) 50 mg/dL (NEGATIVE) H 02/27/20 22:14 Urine Ketones NEGATIVE mg/dL (NEGATIVE) 02/27/20 22:14 Urine Blood SMALL (NEGATIVE) H 02/27/20 22:14 Urine Nitrite NEGATIVE (NEGATIVE) 02/27/20 22:14 Urine Bilirubin NEGATIVE (NEGATIVE) 02/27/20 22:14 Urine Urobilinogen NEGATIVE mg/dL (<2.0) 02/27/20 22:14 Ur Leukocyte Esterase NEGATIVE (NEGATIVE) 02/27/20 22:14 Urine WBC (Auto) 4 /HPF 02/27/20 22:14 Urine RBC (Auto) 6 /HPF 02/27/20 22:14 Squamous Epi Cells Auto <1 /HPF 02/27/20 22:14 Urine Mucus (Auto) FEW /LPF 02/27/20 22:14 Urine Ascorbic Acid NEGATIVE (NEGATIVE) 02/27/20 22:14 Urine Opiates Screen UNCONFIRMED POSITIVE 02/27/20 22:14 Urine Methadone Screen NEGATIVE 02/27/20 22:14 Ur Barbiturates Screen NEGATIVE 02/27/20 22:14 Ur Phencyclidine Scrn NEGATIVE 02/27/20 22:14 Ur Amphetamines Screen NEGATIVE 02/27/20 22:14 U Benzodiazepines Scrn NEGATIVE 02/27/20 22:14 Urine Cocaine Screen NEGATIVE 02/27/20 22:14 U Marijuana (THC) Screen NEGATIVE 02/27/20 22:14 Influenza A (RT-PCR) NEGATIVE (NEGATIVE) 02/28/20 15:32 Influenza B (RT-PCR) NEGATIVE (NEGATIVE) 02/28/20 15:32 RSV (RT-PCR) NEGATIVE (NEGATIVE) 02/28/20 15:32 SARS-CoV-2 Rap RNA(RT-PCR) POSITIVE (NEGATIVE) 02/28/20 15:32 02/27/20 20:31 Troponin I < 0.012 Impressions: Forearm X-Ray 02/27/20 22:28 IMPRESSION: No acute abnormality. Humerus X-Ray 02/27/20 22:29 IMPRESSION: 1. No acute bone findings Upper Extremity CT 02/28/20 00:00 IMPRESSION: Soft tissue edema. No new subcutaneous gas to suggest necrotizing fasciitis. Small left effusion. Venous Doppler Study 02/28/20 00:00 IMPRESSION: Occlusive SVT involving the cephalic vein as described. Plan Health Concerns: Serious concern for IV drug user who sustained severe infection requiring surgical intervention in his left arm. Plan of Treatment: Outpatient oral antibiotics, pain meds and indomethacin for a fixed interval to help with any pleuritic-like chest pain Goals: Complete healing of the left arm surgical sites. Cessation of illicit drug use. Time Spent: Greater than 30 Minutes Stroke Is this a Stroke Patient?: No Acute Heart Failure Is this a Heart Failure Patient?: No
[2020-03-03 14:14] VITALS: BP 132/71
== END 2020-03-03 16:13 | disposition home or self-care (01) | DRG 853 ==
LOC: ER 19:47 → EH 22:39 → 3S 02-28 16:20 → 3W 02-28 17:50
PROVIDERS: ADMIT Student in an Organized Health Care Education/Training Program; ATTEND Hospitalist
PROC: 05BF0ZZ Excision of Left Cephalic Vein, Open Approach (ICD-10-PCS; 2020-02-28)
PROC: 05BC0ZZ Excision of Left Basilic Vein, Open Approach (ICD-10-PCS; principal; 2020-02-28 17:45)
DX: A40.0 Sepsis due to streptococcus, group A (principal); G93.41 Metabolic encephalopathy; U07.1 COVID-19; L03.114 Cellulitis of left upper limb; F10.239 Alcohol dependence with withdrawal, unspecified; E87.1 Hypo-osmolality and hyponatremia; F15.13 Other stimulant abuse with withdrawal; F11.13 Opioid abuse with withdrawal; I80.8 Phlebitis and thrombophlebitis of other sites; R65.20 Severe sepsis without septic shock; Z78.1 Physical restraint status
CPT/HCPCS: 01850; 36415; 71045; 80048; 80053; 80307; 81001; 82607; 82728; 82746; 83540; 83550; 83605; 84484; 85025; 85027; 85045; 85610; 85730; 87040; 87070; 87075; 87077; 87150; 87186; 87205; 93005; 93010; 93306; 93971; 96361; 96365; 96367; 96375; 99140; 99285; 0241U; C9803; J0696; J1170; J1650; J1885; J2060; J2405; J2540; J2543; J2704; J2710; J3010; J3370; J3490; J7030; J7050; J7060; J7120